=== PATIENT | male | born 1960 | race Caucasian/White ===

== ENCOUNTER 2023-05-21 06:05 | Day surgery (SDC) | payer BC, SELFPAY ==
[2023-05-21] VITALS (8 sets, daily range): BP systolic 129–166; BP diastolic 78–99; BMI 30.8
[2023-05-21] MEDS: NSS 267 ML IV (07:05)
[2023-05-21] MEDS: LOW STRENGTH ASPIRIN 324 MG PO (07:24)
--- NOTE | 2023-05-21 07:25 | ITS.CL.CATH ---
Annealing Operator - Catheterization
Cardiac Catheterization
Procedure Report:
LEFT HEART CATHETERIZATION
Date of Procedure: November 19, 2023
Procedures performed:
1: Coronary angiography
2: Left ventricular hemodynamic assessment
Primary Care Physician: Dr. Tammy Teixeira
Primary Drawing Box Tender: Myself
INDICATION: The patient is a 62-year-old man with a past medical history significant for severe mitral regurgitation with prolapse of the P2 segment and recent atrial fibrillation now on Eliquis who is referred for coronary angiography in
preparation for surgical mitral valve repair. The patient is in atrial fibrillation and Eliquis was held for the procedure.
ACCESS: The patient was prepped and draped in usual sterile fashion. A 6 Cameroonian sheath was placed in the right radial artery using the Seldinger over the wire technique.
HEMODYNAMIC FINDINGS (mmHg):
LV(s/d,EDP): 147/13, 17
Ao(s/d,m): 146/92, 113
ANGIOGRAPHIC FINDINGS:
Single-plane Left Ventriculography in [facility] Projection: Not done.
Coronary Angiography:
Dominance: Right
Left Main: Normal
Left Anterior Descending: The left anterior descending artery is a medium caliber vessel that gives rise to 1 medium caliber bifurcating diagonal branch. These vessels have mild luminal irregularities with no obstructive disease.
Left Circumflex: Left circumflex is a medium caliber vessel that gives rise to 2 major obtuse marginal branches. These vessels are widely patent with mild luminal irregularities.
Right Coronary: The right coronary artery is a medium caliber dominant vessel that gives rise to a medium caliber posterior descending artery and posterior left ventricular branch system. There is a 30 to 40% stenosis in the distal bifurcation.
The remainder the vessels have only mild luminal irregularities with normal flow.
Fluoroscopy Time (min): 2.0
Radiation Dose (mGy): 236
DAP (Gy.cm2): 17
Closure device: None. A TR band was applied for hemostasis at the right wrist.
Complications: None.
ASSESSMENT:
1: Mild nonobstructive coronary artery disease.
CONCLUSIONS and RECOMMENDATIONS:
1: Proceed with planned mitral valve surgery as scheduled. Resume Eliquis later tonight.
Lora De La Paz M.D.
Copy to: Dr. Tammy Teixeira
[2023-05-21] MEDS: NSS 1000 IV (08:29)
== END 2023-05-21 11:00 | disposition home or self-care (01) ==
LOC: CATH 06:05
PROVIDERS: ATTENDING PHYSICIAN Internal Medicine Interventional Cardiology; FAMILY PHYSICIAN Nurse Practitioner
DX: I34.0 Nonrheumatic mitral (valve) insufficiency (principal); I25.10 Atherosclerotic heart disease of native coronary artery without angina pectoris; I48.91 Unspecified atrial fibrillation; I10 Essential (primary) hypertension; E78.5 Hyperlipidemia, unspecified; Z87.891 Personal history of nicotine dependence; Z79.01 Long term (current) use of anticoagulants
CPT/HCPCS: 93458; C1894; Q9967

== ENCOUNTER 2023-06-13 04:53 | Inpatient (IN) | payer BC, SELFPAY ==
[2023-05-14 12:30] LABS: Hematocrit 44.9 % (39.0-52.0); Hemoglobin 15.7 g/dL (13.0-18.0); Mean Corpuscular Hgb 30.8 pg (27.0-31.0); Mean Platelet Volume 9.8 fL (7.4-10.4); Platelet Count 313 10^3/uL (130-400); Red Cell Dist. Width 12.5 % (11.5-14.5); White Blood Cell Count 8.2 10^3/uL (4.8-10.8)
[2023-05-14 12:31] VITALS: BMI 29.3
[2023-05-14 12:43] LABS: INR 1.11; PT 14.5 Sec (11.4-14.6)
[2023-05-14 12:44] LABS: ALT (SGPT) 28 U/L (0-50); APTT 32.3 Sec (23.4-35.0); AST (SGOT) 32 U/L (17-59); Albumin 4.3 g/dl (3.5-5.0); Alkaline Phosphatase 67 U/L (38-126); Blood Urea Nitrogen 14 mg/dl (9-20); Calcium 9.8 mg/dl (8.4-10.2); Carbon Dioxide 29 mmol/L (22-30); Chloride 93 mmol/L (98-107); Direct Bilirubin 0.4 mg/dl (0.0-0.4); Estimated Creatinine Clearance 109 ml/min; Glucose 99 mg/dl (70-99); Potassium 4.9 mmol/L (3.5-5.1); Sodium 130 mmol/L (135-145); Total Bilirubin 1.2 mg/dl (0.2-1.3); Total Protein 6.8 g/dl (6.3-8.2); eGFR > 60.00
[2023-05-14 12:46] LABS: Urine Albumin Negative (Neg - Trace); Urine Bilirubin Negative (Negative); Urine Character Clear (Clear); Urine Color Yellow; Urine Glucose Negative (Negative); Urine Ketone Negative (Negative); Urine Leukocyte Negative (Negative); Urine Nitrite Negative (Negative); Urine Occult Blood Negative (Negative); Urine Urobilinogen Negative (Neg - 1+)
--- NOTE | 2023-05-14 13:52 | CM ---
Chart reviewed. Patient is independent of ADLS, lives with his and Down Syndrome son in a 2 ST, 1 LUCÍA, 0 DME. Reviewed preoperative and postoperative instructions and restrictions, along with showering guidelines. Gave patient 2 soaps,
along with a Cardiac Surgery Book. Patient is agreeable to home visit by CT Transitional RN. Plan is for the patient to return home with CT Transitional RN.
[2023-05-15 09:09] LABS: Glycohemoglobin (HgbA1c) 5.5 % (4.0-5.6)
[2023-06-13] VITALS (8 sets, daily range): BP systolic 107–128; BP diastolic 69–84; BMI 27.0
[2023-06-13] MEDS: PROTONIX 40 MG PO (05:38)
[2023-06-13] MEDS: MAGNESIUM OXIDE 500 MG PO (05:45)
[2023-06-13] MEDS: LOPRESSOR 25 MG PO (05:45)
--- NOTE | 2023-06-13 05:57 | W.CVOR.SURPR ---
CVOR Surgeon Immed Pre Op
-
I have examined this patient prior to performance of the scheduled procedure.
The patient's condition is unchanged from the time of the dictated/written History and
Physical and the patient is able to undergo the scheduled procedure.
MV Repair + LA MAZE + JENN E
[2023-06-13] MEDS: BACTROBAN 2% OINTMENT 1 APPLIC NASAL ×2 (06:30→20:51)
[2023-06-13 07:45] LABS: ACT+ - POC 98 Seconds (82-134)
[2023-06-13 07:46] LABS: Urine Albumin Negative (Neg - Trace); Urine Bilirubin Negative (Negative); Urine Character Clear (Clear); Urine Color Yellow; Urine Glucose Negative (Negative); Urine Ketone Negative (Negative); Urine Leukocyte Negative (Negative); Urine Nitrite Negative (Negative); Urine Occult Blood Negative (Negative); Urine Urobilinogen Negative (Neg - 1+)
[2023-06-13 07:51] LABS: B.E. - POC -1.6 mmol/L; Glucose - POC 106 mg/dl (65-99); HCO3 - POC 23 mmol/L (21-29); Hematocrit - POC 38 % PCV (42-52); Hemodilution- POC No; Hemoglobin Calculated - POC 12.9; Ionized Calcium - POC 1.17 mmol/L (1.12-1.27); O2 Saturation %Calculated-POC 99.3 5 (92-96); PCO2 - POC 36 mmHg (35-45); PO2 - POC 145 mmHg (80-100); Potassium - POC 3.8 mmol/L (3.6-5.0); Sodium - POC 136 mmol/L (135-145)
[2023-06-13 08:30] LABS: ACT+ - POC 574 Seconds (82-134)
[2023-06-13 09:08] LABS: ACT+ - POC 606 Seconds (82-134)
[2023-06-13 09:20] LABS: B.E. - POC 0.3 mmol/L; Glucose - POC 183 mg/dl (65-99); HCO3 - POC 25 mmol/L (21-29); Hematocrit - POC 32 % PCV (42-52); Hemodilution- POC Yes; Hemoglobin Calculated - POC 10.8; O2 Saturation %Calculated-POC 99.9 5 (92-96); PCO2 - POC 41 mmHg (35-45); PO2 - POC 353 mmHg (80-100); Potassium - POC 5.4 mmol/L (3.6-5.0); Sodium - POC 132 mmol/L (135-145)
[2023-06-13 09:48] LABS: B.E. - POC 0.3 mmol/L; Glucose - POC 174 mg/dl (65-99); HCO3 - POC 26 mmol/L (21-29); Hematocrit - POC 33 % PCV (42-52); Hemodilution- POC Yes; Hemoglobin Calculated - POC 11.2; Ionized Calcium - POC 1.08 mmol/L (1.12-1.27); O2 Saturation %Calculated-POC 99.9 5 (92-96); PCO2 - POC 43 mmHg (35-45); PO2 - POC 316 mmHg (80-100); Potassium - POC 4.1 mmol/L (3.6-5.0); Sodium - POC 134 mmol/L (135-145); pH - POC 7.38 (7.35-7.45)
[2023-06-13 09:51] LABS: ACT+ - POC 543 Seconds (82-134)
[2023-06-13 10:31] LABS: B.E. - POC -2.4 mmol/L; Glucose - POC 92 mg/dl (65-99); HCO3 - POC 21 mmol/L (21-29); Hematocrit - POC 38 % PCV (42-52); Hemodilution- POC Yes; Ionized Calcium - POC 1.37 mmol/L (1.12-1.27); PCO2 - POC 32 mmHg (35-45); PO2 - POC 526 mmHg (80-100); Potassium - POC 3.6 mmol/L (3.6-5.0); Sodium - POC 136 mmol/L (135-145); pH - POC 7.43 (7.35-7.45)
[2023-06-13 10:34] LABS: ACT+ - POC 539 Seconds (82-134)
[2023-06-13 10:50] LABS: ACT+ - POC 101 Seconds (82-134)
[2023-06-13 10:59] LABS: B.E. - POC -4.3 mmol/L; Glucose - POC 65 mg/dl (65-99); HCO3 - POC 23 mmol/L (21-29); Hematocrit - POC 37 % PCV (42-52); Hemodilution- POC Yes; Hemoglobin Calculated - POC 12.5; Ionized Calcium - POC 1.31 mmol/L (1.12-1.27); PCO2 - POC 48 mmHg (35-45); PO2 - POC 69 mmHg (80-100); Potassium - POC 3.1 mmol/L (3.6-5.0); Sodium - POC 139 mmol/L (135-145); pH - POC 7.28 (7.35-7.45)
--- NOTE | 2023-06-13 11:30 | W.PN.CT.SURG ---
CT Surgery Operative Note
-
CARDIAC SURGERY OPERATIVE REPORT
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
Postoperative Diagnosis: Same
Procedure(s) Performed:
1. Right mini thoracotomy with right common femoral artery and vein cannulation under LINDA guidance
2. Radical mitral valve repair (30 mm annuloplasty band, neochordalplasty with 2 pairs of CV 4 Superior-Matias to P2/P3)
3. Left atrial maze using cryoablation
4. Left atrial appendage exclusion
5. Placement temporary ventricular pacing wires
6. Trans esophageal echocardiography
Date of Surgery: 06/13/23
Comorbidities:
1. Severe mitral valve insufficiency, symptomatic, secondary to type II pathology [prolapse of P2 scallop into P3 scallop]
2. Paroxysmal atrial fibrillation on anticoagulation
3. Hyperlipidemia
4. Hypertension
5. Inflammatory bowel disease
6. Degenerative joint disease
7. BPH
8. History of skin cancer
9. Chronic back pain
10. Mild left ventricular dilation /cardiomyopathy
Attending Surgeon: Samy Lora MD, MS
Assistants: Kimberly Pak PA-C (present and necessary for retraction, suctioning, exposure, suture management, wound closure, etc. under my direction)
Anesthesiology: Rodriguez Jones MD and Topher Atkins CRNA
Scrub and Circulating RNs: Farida Piedra RN, Malika Dorsey RN
Infrastructure Technician: Angeles Decker CCP
Anesthesia: GETA
EBL: per perfusion records
Products: none
CPB Time: 120 minutes
Aortic Cross Clamp Time: 86 minutes
Indication(s) for Procedures: This is a 62-year-old mitral series secondary to degenerative mitral valve disease. He also had new onset atrial fibrillation and was symptomatic in the form of shortness of breath and fatigue and requiring Lasix for
edema. He met stage D symptomatology and class I indication for mitral valve invention.
Mitral Valve Description: Myxomatous disease with thickening of both the anterior and posterior mitral valve leaflets. There was marked degeneration and prolapse of the P2 scallop into the P3 scallop. There was also asymmetrical dilation of the
annulus mostly at the P2 P3 region.
Ablation:
1. Box lesion to posterior LA wall encompassing the bilateral Pulmonary Veins
2. JENN lesion + JENN Exclusion
3. Posterior mitral annular line toward P2/P3
4. Due to difficulty with exposure, I was unable to safely visualize the coronary sinus and so I did not perform this ablation line
Implants:
1. 30mm Annuloplasty Band, DAILEY PhysioFlex, SN [id number]
2. 2 pairs of CV-4 GoreTex
Specimen:
1. None
Findings: Left ventricular ejection fraction preoperatively was approximate 55% with mildly dilated left ventricular dimensions following surgery his EF remained normal at 60 to 65% with a cardiac index of over 3 without inotropic support. The
mitral valve was repaired by placement of 2 CV 4 Superior-Matias sutures to the anterior lateral and posterior medial papillary muscle heads directed towards the P2 and P3 scallops. A total of 11 nonpledgeted 2 Ethibond sutures were placed to support the
annulus from trigone to trigone and secured with core knots. Dynamic saline pressurization of the LV and ink test demonstrated a posterior coaptation line with approximately 8 mm of coaptation height. Upon removal of the cross-clamp and coming off
of cardiopulmonary bypass, he had no residual mitral valve insufficiency, no systolic anterior motion, and a mean gradient of 3 across the valve was a index of 3. There were no new regional wall motion abnormalities. RV function was normal. He
regained sinus rhythm after short period of first-degree AV block.
Description of Procedure: The patient was brought to the operating room and placed supine in the table with their right side bumped up and right arm down. Arterial and central access was performed by anesthesiology. The patient was prepped from chin
to toes in the typical sterile fashion. Trans esophageal evaluation of cardiac function and all valvular structures was conducted. Before commencing, a time out was performed by all members of the team. All were in agreement with the procedure and
laterality and I proceeded. A small right groin incision was made to expose the common femoral artery and vein. A total of 40,000units of heparin was given. A 5-6 cm right lateral thoracotomy was performed over the 4th intercostal space verified by
visualization of the hilum. The common femoral artery and vein were cannulated under transesophageal guidance using open Seldinger technique. The arterial line was verified to have an appropriate bounce and pressure correlating with testing. Once
the ACT was above 400, retrograde autologous priming was done and we commenced cardiopulmonary bypass. Target core temperature was 34�C.
Carbon dioxide was used to flood the field. The course of the phrenic nerve was identified to prevent injury. His right hemidiaphragm was elevated and so a diaphragm stitch was placed at the central tendon and retracted anteriorly in order to roll
the diaphragm downward. The pericardium was opened and two stay sutures were placed to facilitate a ``pericardial table.�� The oblique sinus was developed followed by the inter atrial groove. An antegrade root vent was inserted and secured with a
pursestring suture. The pump flow and mean arterial pressure were lowered and an aortic cross clamp was applied to the ascending aorta. A total of 1.2L initial dose of Antegrade cardioplegia was delivered. We had rapid electro myocardial quiescence
at 400cc of cardioplegia. The ventricle was monitored for distension by echocardiogram during this time. The left atrium was incised and enlarged. A left atrial lift retractor was placed. The mitral valve was inspected. I did have to redose
cardioplegia, as likely the clamp was not occlusive, a total of 300cc of additional cardioplegia with quiescent at <100cc of cardioplegia. Left atrial cryoablation was performed with the ablation lines listed above. The mitral valve was repaired as
described above. The left atrial appendage was then sewn shut with 3-0 Prolene in a double layered fashion. The left atriotomy was closed with 3-0 prolene in a running fashion leaving a ventricular vent in place to de-air. After filling the heart,
the vent was removed and the prolene was secured with a corknot. Unipolar ventricular pacing wire was placed on the base of the right ventricle. The patient was placed into Trendelenburg position and pump flows were lowered. The clamp was slowly
removed with the root vent turned on. De-airing maneuvers were performed. We started to rewarm with a target of 36.5�C.
As the heart recovered, the mitral valve and ventricular function were assessed under transesophageal echocardiogram. The root vent was removed. Once weaning parameters were satisfactory, cardiopulmonary bypass flow was lowered until we were off
cardiopulmonary bypass the mitral valve was inspected again. All surgical sites were inspected for hemostasis and appeared appropriate. The lines were clamped and the arterial was relocated to the venous cannula to give back volume. A test dose of
protamine was delivered and patient was monitored for any adverse reactions followed by complete protamine dosing. The femoral vessels were decannulated and repaired as indicated. The pericardium was approximated with 2-0 ethibond sutures secured
with corknots. One 19F Navneet drain remained in the pleural space and one 24F navneet drain in the pericardium. There was an excellent palpable distal to the APPRENTICE TECHNICIAN cannulation site. Local analgesia was injected to the thoracotomy. The rib space was
approximated with #2 ethibond suture. The incision was closed in layers in a running fashion.
All instrument, sponge, and needle counts were confirmed to be correct x 2 at the end of the operation. The patient was transferred to the cardiac intensive care unit in critical but stable condition.
I, Dr. Samy Lora, was present, scrubbed for, and performed all critical elements of this procedure.
Samy Lora MD, MS
Cardiothoracic Surgeon
[facility]
This dictation was created using the [employer] dictation system. Please excuse any grammatical, typographical, or 'sound alike' errors
[2023-06-13 11:59] LABS: Glucose - Point of Care 103 mg/dl (70-99)
[2023-06-13 12:12] LABS: Mixed Venous O2 Saturation 74.2 %
[2023-06-13 12:19] LABS: Hematocrit 38.3 % (39.0-52.0); Hemoglobin 12.9 g/dL (13.0-18.0); Platelet Count 285 10^3/uL (130-400)
--- NOTE | 2023-06-13 12:24 | W.PN.UPDATE ---
Update Note
Progress Note Update
62 year old male electively with severe mitral regurgitation, was admitted 06/13 for mitral valve repair #30mm, neochords(2 pair); Cryo MAZE; JENN exclusion via right mini thoracotomy by Dr. Lora
IV fluids: 1000
U.O.:� 650
Blood:� none
Wires:� 2 V-wires
Inotropes:� none
Pressors:� none
Sedatives:�
�
NEURO: drowsy, pupils +3mm B/L , CAST to command
RESP: Extubated in OR, Lungs clear B/L.1 mediastinal and R pleural (35cc on arrival) chest tubes to -20cm suction. Sanguineous drainage
CV: RRR +S1, S2, no S3, no�rub, no murmur. Dermabond to right mini thoracotomy and right femoral cannulation site. RIJ w/Wilson locked @ 48cm. PA 38/23; CVP 14
ABD: round, soft, no BS
EXT: no edema, +2/4 DP pulses B/L, left radial A-line intact
: Gill with clear yellow urine
�
A/P: POD #0 s/p mitral valve repair #30mm, neochords (2 pair); Cryo MAZE; JENN exclusion via right mini thoracotomy
LINDA: EF�60%
- extubated in OR
- will need pre discharge TTE
- will need instruction regarding antibiotic prophylaxis for dental and invasive procedures
�
# acute surgical blood loss anemia-expected
- trend CBC
�
# hx Atrial fibrillation
- resume�Toprol XL Eliquis on DC per Dr Lora
- Lopressor and ASA in immediate post-op period
# HTN
- on Lisinopril/HCTZ at home. Resume as BP/creatinine permits
# Hyperlipidemia
- resume Lipitor 80mg daily
# chronic back pain/depression
- resume Cymbalta 30mg daily when tolerating oral intake
# Irritable bowel syndrome
- resume Entyvio on dc
[2023-06-13 12:26] LABS: Blood Urea Nitrogen 17 mg/dl (9-20); Estimated Creatinine Clearance 91 ml/min; Glucose 102 mg/dl (70-99); Magnesium 3.3 mg/dl (1.6-2.3)
--- NOTE | 2023-06-13 12:27 | CM ---
Chart reviewed. Patient is in the OR today. Patient is independent of ADLS, lives with his in a 2 STH, 1 LUCÍA, 0 DME. Plan is for the patient to return home with CT Transitional RN. CM to follow
[2023-06-13 12:30] LABS: INR 1.46; PT 17.6 Sec (11.4-14.6)
[2023-06-13 12:31] LABS: APTT 29.4 Sec (23.4-35.0)
--- NOTE | 2023-06-13 12:48 | CON.INTV ---
Consultation
Consultation Request
Date/Time Consultation Requested: 06/13/2023-12:30 PM
Date/Time Consultation Performed: 06/13/2023-1 PM
Requesting Provider: Dr. Lora
Performing Provider: Dr. Altman
Reason for Consultation: Postoperative ventilator/critical care management
Medical History
-
Chief Complaint: Mitral regurgitation
History of Present Illness:
62-year-old male with a history of hypertension, hyperlipidemia, inflammatory bowel disease with severe mitral valve insufficiency who underwent radical mitral valve repair and advertising solicitor consulted for postoperative ventilator/critical care
management 06/13/2023. Patient was extubated successfully, somewhat groggy, no complaints of shortness of breath, pain controlled, no chest congestion, productive cough, or abdominal pain
Past Medical History
Past Medical History: None (Hypertension. Hyperlipidemia. PAF on anticoagulation. Inflammatory bowel disease. DJD. BPH. Chronic back pain. Former smoker.)
Social History
Tobacco: Former Smoker (80-wvpf-sucr quit 30 years ago)
Alcohol: Occasional
Drug: None
Living: With Family
Occupational Exposures: No known asbestos exposure
Environmental Exposures: No known tuberculosis exposure
Family History
Family History: Other (Father-lung cancer. Mother-Alzheimer's)
Allergies / Home Medications
Allergies
Allergy/AdvReac Type Severity Reaction Status Date / Time
codeine Allergy Vomiting Verified 05/21/23 06:32
Home Medications
Medication Instructions Recorded Confirmed Last Taken Type
Entyvio Pen 1 dose SC Q8W 05/13/23 06/13/23 04/30/23 History
apixaban 5 mg tablet (Eliquis) 5 mg PO BID 05/13/23 06/13/23 06/07/23 History
atorvastatin 80 mg tablet 80 mg PO DAILY 05/13/23 06/13/23 06/12/23 History
duloxetine 30 mg capsule,delayed 30 mg PO DAILY 05/13/23 05/21/23 05/21/23 06:00 History
release 30 mg
lisinopril 20 1 tab PO DAILY 05/13/23 06/13/23 06/12/23 History
mg-hydrochlorothiazide 25 mg tablet
metoprolol succinate 50 mg 50 mg PO BID 05/13/23 06/13/23 06/12/23 History
tablet,extended release 24 hr
Review of Systems
-
Unable to Obtain full review of systems at this time due to: Other (Per HPI)
Vitals / Labs / Diagnostic Testing
Vital Signs
Temp Pulse Resp Pulse Ox
96.5 F L 90 17 97
06/13/23 12:00 06/13/23 12:30 06/13/23 12:30 06/13/23 12:30
Lab Data
06/13/23 11:59
Laboratory Results
06/13/23
11:59
PT 17.6 H
INR 1.46
APTT 29.4
Diagnostic Testing:
Physical Exam
-
Exam:
Well-nourished and well-developed in no apparent distress
HEENT-atraumatic, normocephalic
Heart-regular rate and rhythm-no murmurs, rubs or gallops
Chest-clear to auscultation, no wheezes, crackles, median sternotomy bandage is not removed
Abdomen soft nondistended
Extremities-no cyanosis, clubbing, edema and good peripheral pulses
Integument-intact, no rashes, lesions or ecchymosis
Neurologically alert and oriented moving all extremities nonfocal
Assessment
-
62-year-old male with a history of hypertension, hyperlipidemia, inflammatory bowel disease with severe mitral valve insufficiency who underwent radical mitral valve repair and advertising solicitor consulted for postoperative ventilator/critical care
management 06/13/2023.
Assessment
Severe mitral valve insufficiency secondary to type II pathology
Status post minithoracotomy, radical mitral valve repair, left atrial MAZE using cryoablation, left atrial appendage exclusion-Dr. Lora-06/13/2023
Mild anemia
Conditions present prior to admission:
Hypertension.
Hyperlipidemia.
PAF on anticoagulation.
Inflammatory bowel disease.
DJD.
BPH.
Chronic back pain.
Former smoker.
Plan
Patient tolerated extubation postoperatively
Supplemental oxygen as needed
Incentive spirometry
Aspiration precautions
Nebulizers if needed-currently not bronchospastic
Pulmonary artery catheter parameters will be followed
Pressors/antihypertensive/inotropes/diuretics will be provided as needed
Monitor chest tube output
Monitor hemoglobin
Monitor platelet count and coags
Transfuse blood product if needed
CT surgery following chest tubes
Monitor blood sugar
Insulin drip per protocol
Aspiration precautions
VAP prevention protocol
DVT prophylaxis
Early nutrition
Early mobilization
Critical care statement: A total of 46 minutes of critical care time was provided for this patient today. This includes management of ventilator, spontaneous breathing trial, arterial blood gases, pressors, of unstable vital signs, evaluation of the
patient at bedside, reviewing the patient's pertinent medical records including radiographs, microbiology, laboratory evaluations, and discussion with primary team and critical care nursing.
Diagnostic data:
Chest x-ray 06/13/2023-lungs clear
CT chest abdomen and pelvis 06/02/2023-no evidence for thoracic or abdominal aortic aneurysm or dissection, mild coronary artery calcifications
Cardiac catheterization 05/21/2023-mild nonobstructing CAD
Transesophageal echocardiogram-preop 06/13/2023-EF 60%, severe mitral regurgitation
Data Reviewed
-
EKG: Report reviewed by me
Radiology: Report reviewed by me
CT Scan: Report reviewed by me
Medical Tests (Nuc Med, Echo etc): Report reviewed by me
Labs: Labs reviewed by me
Old Records: Reviewed
Critical Care Time (in minutes): 46
--- NOTE | 2023-06-13 13:00 | PTCARENOTE ---
Assumed care of patient from CVOR team. Drowsy but answers appropriately with questions. SR on monitor. Epicardial wire to box. simple mask 8 L 99%. Chest tubes x 2 to - 20 cm suction. No air leak or crepitus noted. Gill draining clear yellow
urine.
Pulses palpated. Insulin per glycemic protocol. RT IJ cordis with swan at 47cm. LT radial A line transducing. Lines leveled, recalibrated and flushed.
[2023-06-13 13:04] LABS: Glucose - Point of Care 127 mg/dl (70-99)
[2023-06-13 13:04] LABS: B.E. -1.9 mmol/L; HCO3 24.3 mmol/L (21-28); Ionized Calcium 1.21 mMOL/L (1.15-1.33); O2 Saturation % 97.9 % (94-98); PCO2 46 mmHg (35-48); PO2 106 mmHg (83-108); Potassium 3.5 mMOL/L (3.5-5.1); pH 7.33 (7.35-7.45)
[2023-06-13] MEDS: MORPHINE SULFATE 2 MG IV ×2 (13:15→20:53)
[2023-06-13] MEDS: TYLENOL PO (13:16)
[2023-06-13] MEDS: PEPCID IV (13:17)
[2023-06-13] MEDS: NSS 500 IV (13:17)
[2023-06-13] MEDS: STERILE WATER FOR INJECTION 16 ML IV ×2 (13:19→13:20)
[2023-06-13] MEDS: ZINACEF 1500 MG IV ×2 (13:20)
[2023-06-13] MEDS: CYMBALTA DELAYED RELEASE PO (13:26)
[2023-06-13] MEDS: NSS (PRESERVATIVE FREE) IV (13:26)
[2023-06-13] MEDS: LIPITOR PO (13:26)
[2023-06-13 14:11] LABS: Glucose - Point of Care 121 mg/dl (70-99)
[2023-06-13 15:09] LABS: Glucose - Point of Care 116 mg/dl (70-99)
--- NOTE | 2023-06-13 15:15 | CON.CAR ---
Addendum entered and electronically signed by Armando Langley MD 06/13/23 17:20:
62-year-old man who underwent mitral valve repair with with neochords, maze, left atrial appendage exclusion on 06/13/2023. Awake, extubated, insulin insulin drip, states he feels fairly comfortable
PMH: Severe mitral regurgitation, PAF, hypertension, hyperlipidemia, degenerative disc disease and IBS
PSH: Left rotator cuff surgery, right arthroscopy pending, dermatologic surgery
FH: Noncontributory
SH: , remote smoker, recent reduction in alcohol,
Allergies: Codeine
ROS not performed, immediately postoperative
Vital signs reviewed and stable,
Head neck exam unremarkable, lungs are clear, regular rate rhythm no rub, abdomen benign extremities without edema, pulses palpable, neuro nonfocal
Postop EKG no acute changes, hemoglobin 13.3, INR 1.46, BUN and creatinine 17 and 0.9, chest x-ray postop satisfactory, chest x-ray satisfactory
Impression:
MV repair with neochords, maze, left atrial appendage exclusion 06/13/2023
History of severe mitral regurgitation
Paroxysmal atrial fibrillation
Hypertension
Hyperlipidemia
Back pain
IBS
Plan:
He looks well immediately postoperatively.
Appreciate efforts of CT surgery.
We will continue to follow.
Original Note:
Consultation
Consultation Request
Date/Time Consultation Requested: 06/13/2023
Date/Time Consultation Performed: 06/13/2023
Requesting Provider: Dr. Lora
Performing Provider: Dr. AUDRA Langley
Reason for Consultation: Post-Op MVR
Medical History
-
History of Present Illness:
HPI: Severo is a 62-year-old male with past medical history of severe mitral regurgitation, paroxysmal atrial fibrillation, hypertension, hyperlipidemia, chronic back pain, and IBS who presented to ER for elective mitral valve repair. He has
had known severe mitral regurgitation and underwent workup including LINDA and catheterization earlier this year. Catheterization revealed mild nonobstructive coronary disease with severe MR. This was also confirmed by LINDA. He was seen by CT
surgery as outpatient and was arranged for elective mitral valve repair which she presented for today, 06/13/2023. Seen postoperatively. He was extubated in the OR and is awake and recovering in the CVICU. He has some mild chest discomfort but
otherwise has no acute complaints.
PMH:
Severe mitral regurgitation
Paroxysmal atrial fibrillation
Chronic Eliquis anticoagulation
Hypertension
Hyperlipidemia
Chronic back pain
IBS
Past Medical History
Past Medical History: Other (In HPI)
Past Surgical History: Other (R rotator cuff repair, L rotator cuff repair)
Social History
Tobacco: Former Smoker
Alcohol: Occasional
Drug: None
Personal:
Living: With Family
Employment: Retired
Family History
Family History: Cancer and Hypertension
Allergies / Home Medications
Allergy/AdvReac Type Severity Reaction Status Date / Time
codeine Allergy Vomiting Verified 05/21/23 06:32
Medication Instructions Recorded Confirmed Type
Entyvio Pen 1 dose SC Q8W 05/13/23 06/13/23 History
apixaban 5 mg tablet (Eliquis) 5 mg PO BID 05/13/23 06/13/23 History
atorvastatin 80 mg tablet 80 mg PO DAILY 05/13/23 06/13/23 History
duloxetine 30 mg capsule,delayed 30 mg PO DAILY 05/13/23 05/21/23 History
release
lisinopril 20 1 tab PO DAILY 05/13/23 06/13/23 History
mg-hydrochlorothiazide 25 mg tablet
metoprolol succinate 50 mg 50 mg PO BID 05/13/23 06/13/23 History
tablet,extended release 24 hr
Review of Systems
-
History Source: Patient
All other systems: Negative unless noted
Physical Exam
Vital Signs
Temp Pulse Resp Pulse Ox
97.9 F 94 18 97
02/09/24 15:07 06/13/23 15:07 06/13/23 15:07 06/13/23 15:07
Lab Results
06/13/23 11:59
Physical Exam
General: Well Developed, Well Nourished and No Apparent Distress
HEENT: Normocephalic, Anicteric and Moist Mucous Membranes
Respiratory: Clear and Non Labored Respirations
Cardiac: S1/S2 and Regular Rhythm
Musculoskeletal: No Clubbing, No Cyanosis and No Edema
Skin: Warm and Dry
Neuro: AO x 3 and Nonfocal/Grossly Intact
Psych: Calm
Impression / Plan
-
PCP: EUGENIO Clark
Taper And Floater: Dr. Tim De La Paz
Impression:
Severe mitral regurgitation
s/p R mini thoracotomy, mitral valve repair (30 mm annuloplasty band, neochordalplasty with 2 pairs of CV 4 [place]-Matias to P2/P3), MAZE, JENN exclusion 06/13/2023
Paroxysmal atrial fibrillation
Chronic Eliquis anticoagulation
Hypertension
Hyperlipidemia
Chronic back pain
IBS
LINDA 06/13/2023: EF 60%, severe MR from P2/P3 prolapse, mild TR, trace AR, normal-appearing left atrial appendage
Plan:
-He is status post mitral valve repair, maze, and JENN exclusion 06/13/[address] Lora.
-Recovering in CVICU. Remains on levo @ 2. Extubated in OR.
-Complains of some mild chest discomfort, otherwise feeling well.
-Postop EKG stable. In sinus rhythm with no arrhythmias noted on telemetry.
-Hemoglobin stable at 12.9. Continue to follow.
-BP stable.
-Continue postop care
HPI: Severo is a 62-year-old male with past medical history of severe mitral regurgitation, paroxysmal atrial fibrillation, hypertension, hyperlipidemia, chronic back pain, and IBS who presented to ER for elective mitral valve repair. He has
had known severe mitral regurgitation and underwent workup including LINDA and catheterization earlier this year. Catheterization revealed mild nonobstructive coronary disease with severe MR. This was also confirmed by LINDA. He was seen by CT
surgery as outpatient and was arranged for elective mitral valve repair which she presented for today, 06/13/2023. Seen postoperatively. He was extubated in the OR and is awake and recovering in the CVICU. He has some mild chest discomfort but
otherwise has no acute complaints.
Data Reviewed
-
EKG: Tracing Personally Visualized and interpreted
Radiology: Report Reviewed by me
Labs: Labs Reviewed by me
Old Records: Reviewed
[2023-06-13] MEDS: TYLENOL 650 MG PO ×2 (15:51→20:53)
[2023-06-13] MEDS: ROXICODONE 5 MG PO (15:51)
[2023-06-13 15:57] LABS: Glucose - Point of Care 112 mg/dl (70-99)
[2023-06-13] MEDS: PACERONE PO (16:03)
[2023-06-13 16:35] LABS: Hematocrit 38.7 % (39.0-52.0); Hemoglobin 13.3 g/dL (13.0-18.0); Platelet Count 300 10^3/uL (130-400)
[2023-06-13] MEDS: STERILE WATER FOR INJECTION 8.30000000000000071 ML IV (17:08)
[2023-06-13] MEDS: ZINACEF 750 MG IV (17:08)
[2023-06-13 17:13] LABS: Glucose - Point of Care 106 mg/dl (70-99)
[2023-06-13 19:04] LABS: Glucose - Point of Care 107 mg/dl (70-99)
[2023-06-13] MEDS: KCL 50 IV (19:19)
--- NOTE | 2023-06-13 20:45 | SUR.OPER ---
Patient received resting in bed. Patient A+A+Ox3. No neurological deficits noted. No c/o headache, dizziness or lightheadedness. O2 at 4L via NC. SaO2 95%. No s/s of respiratory distress. Two chest tubes - Mediastinal and Right Pleural -
Intact and patent - 10ml red drainage - No air leak, tidaling or crepitus noted. Chest tube dressing intact. Sinus Rhythm. Heart rate 90's. Epicardial Temporary Pacemaker - VVI intact. Patient with no c/o chest pain, pressure or discomfort.
Abdomen soft, nondistended. Hypoactive to normoactive bowel sounds. No BM. No c/o nausea. No vomiting. Gill catheter - Temperature sensing - Light anh, yellow urine - Output >=30 ml/hr. Right I.J. Cordis with [place] catheter. Left
radial arterial line. PAP, CVP, A-Line with Pressure bag/Saline flush. Flush without difficulty - Zeroed and calibrated - Waveforms within normal limits. PAP 36/24 (30). CVP 15. SVR 940. C.O. 6.04 C.I. 2.93. Dressing to right lateral chest -
Intact. Several puncture sites - Surgical adhesive. Incision with surgical adhesive - Intact. Insulin gtt - Glycemic Protocol. Patient with positive, palpable pulses. No c/o back or flank pain. Assessment as documented.
[2023-06-13] MEDS: LOPRESSOR 12.5 MG PO (20:51)
[2023-06-13] MEDS: SENOKOT-S 1 TABLET PO (20:51)
[2023-06-13] MEDS: PEPCID 20 MG IV (20:52)
[2023-06-13] MEDS: NSS (PRESERVATIVE FREE) 8 ML IV (20:52)
[2023-06-13 21:03] LABS: Glucose - Point of Care 109 mg/dl (70-99)
[2023-06-13] MEDS: TORADOL 15 MG IV (21:45)
[2023-06-13] MEDS: PACERONE 200 MG PO (21:50)
[2023-06-13] MEDS: KCL 20 MEQ PO (21:50)
[2023-06-13 23:20] LABS: Glucose - Point of Care 107 mg/dl (70-99)
[2023-06-14] VITALS (17 sets, daily range): BP systolic 102–153; BP diastolic 63–95; PULSE 81; O2SAT 92; BMI 27.2
--- NOTE | 2023-06-14 00:30 | PTCARENOTE ---
Morphine sulfate 2mg IV then Toradol 15 mg IV for pain management. Patient now sleeping without difficulty. C.O. 6.40 C.I. 2.93. Cardene gtt titration to maintain SBP 90-130. C.O. 5.43 C.I. 2.64. No further changes from previous assessment.
[2023-06-14] MEDS: ROXICODONE 5 MG PO ×4 (00:35→21:00)
[2023-06-14] MEDS: TYLENOL 650 MG PO ×5 (00:35→21:00)
[2023-06-14] MEDS: FLEXERIL 5 MG PO ×3 (00:36→20:59)
[2023-06-14] MEDS: ZINACEF 750 MG IV ×2 (00:37→08:45)
[2023-06-14] MEDS: STERILE WATER FOR INJECTION 8.30000000000000071 ML IV ×2 (00:37→08:45)
[2023-06-14 00:50] LABS: Glucose - Point of Care 117 mg/dl (70-99)
[2023-06-14 03:14] LABS: Glucose - Point of Care 115 mg/dl (70-99)
[2023-06-14 03:45] LABS: Hematocrit 38.3 % (39.0-52.0); Hemoglobin 13.1 g/dL (13.0-18.0); Mean Corp Hgb Conc. 34.2 g/dL (33.0-37.0); Mean Corpuscular Hgb 30.6 pg (27.0-31.0); Mean Corpuscular Volume 89.5 fL (80.0-94.0); Mean Platelet Volume 9.8 fL (7.4-10.4); Platelet Count 302 10^3/uL (130-400); Red Blood Cell Count 4.28 10^6/uL (4.70-6.10); Red Cell Dist. Width 13.6 % (11.5-14.5); White Blood Cell Count 20.7 10^3/uL (4.8-10.8)
[2023-06-14] MEDS: MORPHINE SULFATE 2 MG IV ×2 (03:45→16:36)
[2023-06-14] MEDS: LOPRESSOR 12.5 MG PO ×2 (04:03→07:29)
[2023-06-14 04:14] LABS: Blood Urea Nitrogen 30 mg/dl (9-20); Calcium 8.6 mg/dl (8.4-10.2); Carbon Dioxide 23 mmol/L (22-30); Chloride 104 mmol/L (98-107); Estimated Creatinine Clearance 102 ml/min; Glucose 109 mg/dl (70-99); Magnesium 2.6 mg/dl (1.6-2.3); Potassium 5.5 mmol/L (3.5-5.1); Sodium 132 mmol/L (135-145); eGFR > 60.00
[2023-06-14 05:24] LABS: Glucose - Point of Care 103 mg/dl (70-99)
[2023-06-14] MEDS: CARDENE 200 IV (05:35)
--- NOTE | 2023-06-14 05:43 | W.PN.CT ---
Today's Communication / Plan
-
-pod #1
-no issues overnight
-CI 2.46, CO 5.07. Drips: Cardene 2.5, insulin
-CT output: R pleur and med 130/250 in 12/24 hrs
-K 5.5- re-check 5.3
-Na 132 (130 preop)
-gave am Lopressor early for HTN
-consider Lasix
-current meds (ASA, Lipitor, Amio, Lopressor). On Eliquis preop for paf
-deline
-d/c insulin
-d/c Gill
-encourage IS, OOB
Assessment / Plan
-
- Symptomatic severe MR - s/p Radical mitral valve repair (30 mm annuloplasty band, neochordalplasty with 2 pairs of CV 4 [place]-Matias to P2/P3); Left atrial maze using cryoablation; Left atrial appendage exclusion by Dr Lora on 06/13/23, pod #1
- Intraop LINDA: LVEF preop was approximate 55% with mildly dilated left ventricular dimensions following surgery his EF remained normal at 60 to 65%. No residual mitral valve insufficiency, no systolic anterior motion, and a mean gradient of 3 across
the valve.� There were no new regional wall motion abnormalities.� RV function was normal.�
- Severe mitral valve insufficiency, symptomatic, secondary to type II pathology [prolapse of P2 scallop into P3 scallop]
- Paroxysmal atrial fibrillation- on Eliquis preop
- Hyperlipidemia
- Hypertension
- Inflammatory bowel disease
- Degenerative joint disease
- BPH
- History of skin cancer
- Chronic back pain
- Mild left ventricular dilation /cardiomyopathy
- Acute postop blood loss anemia - no bleeding, no transfusion
- Acute postop atelectasis
- Acute postop hyperkalemia
- Acute on chronic hyponatremia
Discussed patient care with: Nursing and Care Team
Subjective
-
Date of Service: June 14, 2023
Objective Data
-
PT 17.6 Sec (11.4-14.6) H 06/13/23 11:59
INR 1.46 06/13/23 11:59
APTT 29.4 Sec (23.4-35.0) 06/13/23 11:59
Vital Signs
Vital Signs
Temp Pulse Resp BP Pulse Ox
97.7 F 68 18 107/63 95
06/14/23 03:10 06/14/23 03:10 06/14/23 03:10 06/14/23 03:10 06/14/23 03:10
CT Intake/Output/Weight
06/13/23 06/13/23 06/14/23
06:59 18:59 06:59
Intake Total 212.0 / 825.9 613.9 / 825.9
Output Total 505 / 965 460 / 965
Balance -293.0 / -139.1 153.9 / -139.1
SaO2: 95
Physical Exam
-
General: Awake and AOx3
Cardiovascular: Regular rate & rhythm, No Murmurs and Rub
Respiratory: Decreased Breath Sounds
Sternum: Stable
Incision: Clean, Dry and Dressing Intact
Extremities: No Edema
Data Reviewed
-
Lab Results: Results Reviewed
Medications: Active Meds Reviewed
Chest X-Ray: Report Reviewed and Image Reviewed
ECG: Report Reviewed and Image Reviewed
[2023-06-14 05:55] LABS: Potassium 5.3 mmol/L (3.5-5.1)
--- NOTE | 2023-06-14 06:15 | PTCARENOTE ---
Patient A+A+Ox3. No neurological deficits noted. Sinus Rhythm. O2 3L via NC. Patient continues on Insulin gtt and Cardene gtt. [place] catheter discontinued. Left radial arterial line intact. AM labs collected and sent. K 5.5 via Arterial
draw. Repeat K 5.3 via lab draw from Cordis. Patient given CHG bath and linens changed. Chest tube dressing changed. Patient assisted OOB to chair with assist x2 without difficulty. Assessment/Interventions as documented.
[2023-06-14 07:13] LABS: Glucose - Point of Care 119 mg/dl (70-99)
[2023-06-14] MEDS: LASIX 40 MG IV (07:27)
[2023-06-14] MEDS: PEPCID 20 MG IV (07:28)
[2023-06-14] MEDS: NSS (PRESERVATIVE FREE) 8 ML IV (07:28)
[2023-06-14] MEDS: PACERONE 200 MG PO ×3 (07:29→22:37)
[2023-06-14] MEDS: LIPITOR 80 MG PO (07:29)
[2023-06-14] MEDS: LOPRESSOR PO (07:30)
[2023-06-14] MEDS: LOW STRENGTH ASPIRIN 81 MG PO (07:30)
[2023-06-14] MEDS: BACTROBAN 2% OINTMENT 1 APPLIC NASAL ×2 (07:30→20:59)
[2023-06-14] MEDS: CYMBALTA DELAYED RELEASE 30 MG PO (07:30)
[2023-06-14] MEDS: SENOKOT-S 1 TABLET PO ×2 (07:30→20:59)
[2023-06-14] MEDS: LASIX IV (07:30)
--- NOTE | 2023-06-14 07:30 | PTCARENOTE ---
Assumed care of patient from casino shift manager RN. CARMENO x3 sitting up in the chair. SR on monitor. Lt radial A line transducing, leveled, recalibrated, and flushed. Epicardial Wire maintained, box off. Insulin drip infusing per glycemic protocol. 3 L
NC 96%. Using IS independently up to 1000. No cough or sputum noted. Chest tubes to - 20 cm suction, no air leak or crepitus noted. Abdomen soft and non tender, denies nausea. Gill draining clear anh urine. Surgical sites well approximated,
surgical glue intact. Pulses palpable. General trace anasarca noted.
--- NOTE | 2023-06-14 07:41 | W.PN.INTV ---
Today's Communication / Plan
Recommendations
Tolerated extubation
Wean FiO2
Increase activity
Monitor chest tube output
deline
If insulin discontinued then transfer to telemetry-call pulmonary if respiratory issues arise
Assessment
-
62-year-old male with a history of hypertension, hyperlipidemia, inflammatory bowel disease with severe mitral valve insufficiency who underwent radical mitral valve repair and group insurance special agent consulted for postoperative ventilator/critical care
management 06/13/2023.
Assessment
Severe mitral valve insufficiency secondary to type II pathology
Status post minithoracotomy, radical mitral valve repair, left atrial MAZE using cryoablation, left atrial appendage exclusion-Dr. Lora-06/13/2023
Mild anemia
Leukocytosis
Conditions present prior to admission:
Hypertension.
Hyperlipidemia.
PAF on anticoagulation.
Inflammatory bowel disease.
DJD.
BPH.
Chronic back pain.
Former smoker.
Plan
Tolerated extubation
Wean FiO2
Encourage incentive spirometry
Increase activity
Aspiration precautions
Pulmonary artery catheter and arterial line will be removed
Pressors have been weaned
Continue to monitor chest tube output
Follow hemoglobin
Continue to follow platelet count and coags
Transfuse blood product as needed
CT surgery following chest tubes as well
Follow blood sugar
Insulin supplementation continues as needed
Early nutrition
Early mobilization
DVT prophylaxis
If patient able to be weaned off insulin drip then patient will be transferred to telemetry phase-call pulmonary if respiratory issues arise
Reviewed the patient's pertinent medical records including radiographs, microbiology, laboratory evaluations, and discussion with primary team, and critical care nursing.
Diagnostic data:
Chest x-ray 06/13/2023-lungs clear
CT chest abdomen and pelvis 06/02/2023-no evidence for thoracic or abdominal aortic aneurysm or dissection, mild coronary artery calcifications
Cardiac catheterization 05/21/2023-mild nonobstructing CAD
Transesophageal echocardiogram-preop 06/13/2023-EF 60%, severe mitral regurgitation
Subjective Dataa
Subjective Data
Date of Service:
Date of Service: June 14, 2023
Chief Complaint: Police Liaison Follow Up and Vent Management Follow Up
Subjective:
Tolerated extubation, no complaints of shortness of breath, out of bed, pain from surgery controlled, chest tube output noted, no abdominal pain
Review of Systems
General: Other (Per HPI)
Objective Data
Data Reviewed
Vital Signs / I&O / Oxygen:
Vital Signs
Temp Pulse Resp BP Pulse Ox
97.6 F 86 27 135/82 95
06/14/23 04:00 06/14/23 07:29 06/14/23 06:30 06/14/23 07:29 06/14/23 06:00
Intake and Output
06/13/23 06/14/23 06/15/23
06:59 06:59 06:59
Intake Total 953.3 / 953.3
Output Total 1115 / 1115
Balance -161.7 / -161.7
SaO2 95
Nasal Cannula flow liters per 3
minute
Physical Exam
General: Respiratory Distress (n) and Comfortable
HEENT: Normocephalic, Anicteric and Moist Mucous Membranes
Cardiovascular: Regular Rhythm
Respiratory: Crackles (n), Rhonchi (n), Non-Labored Respirations, Accessory Resp Muscle Use (n) and Stridor (n)
GI: Soft, Non Distended and Non Tender
Neurology: Awake, Alert and No Motor Deficits
Skin: Warm, Good Color, Cyanosis (n) and Jaundice (n)
Labs/Micro/Reports
Lab Data
06/14/23 03:33
06/14/23 05:33
Laboratory Results
06/13/23 06/13/23 06/13/23
11:59 12:00 12:52
PT 17.6 H
INR 1.46
APTT 29.4
pH Cancelled 7.33 L
pCO2 Cancelled 46
pO2 Cancelled 106
HCO3 Cancelled 24.3
O2 Delivery Level Cancelled
[2023-06-14] MEDS: NSS IV (08:46)
[2023-06-14 08:59] LABS: Glucose - Point of Care 126 mg/dl (70-99)
--- NOTE | 2023-06-14 09:00 | PTCARENOTE ---
Cardene drip weaned off, Lt radial A line removed, manual pressure applied , hemostasis achieved. Gill cath removed at this time. Weaned to room air 92%. Resting in chair. will monitor.
[2023-06-14 10:57] LABS: Glucose - Point of Care 114 mg/dl (70-99)
[2023-06-14] MEDS: PROTONIX 40 MG PO (11:21)
[2023-06-14] MEDS: TORADOL 15 MG IV (11:21)
[2023-06-14] MEDS: TYLENOL PO (11:23)
--- NOTE | 2023-06-14 12:28 | PTCARENOTE ---
Insulin drip discontinued per md order. Pain medication administered. VSS Assessment unchanged from prior.
--- NOTE | 2023-06-14 12:48 | W.PN.ANS.POP ---
Anesthesia Post Operative
- Anesthesia Post Op Note
Vital Signs Stable-See Nursing Note: Yes
Airway Patent: Yes
Adequate Pain Control: Yes
Change in Mental Status: No
Current Postoperative Nausea & Vomiting: No
Anesthesia Complications: No
General Anesthetic Recall: No
Unplanned Admission: No
Post Op Hydration Adequate: Yes
--- NOTE | 2023-06-14 15:36 | PTCARENOTE ---
Pt with no urge to void post sandoval removal this am. Ambulated to bathroom, unable to void. Assisted back to bed. Bladder scanned for 184 ml . No tenderness or urge on palpation. Will allow more time. CT CERTIFIED HYPERBARIC TECHNICIAN notified. Assessment otherwise
unchanged. Will monitor.
[2023-06-14] MEDS: LOPRESSOR 25 MG PO (20:59)
--- NOTE | 2023-06-14 21:00 | PTCARENOTE ---
Patient received resting in bed watching television. Patient A+A+Ox3. No neurological deficits noted. No c/o headache, dizziness or lightheadedness. No s/s of respiratory distress. Room air. SaO2 92%. Two chest tubes - Mediastinal and Right
Pleural - Intact and patent - 5 ml red drainage - No air leak, tidaling or crepitus noted. Chest tube dressing intact. Sinus Tachycardia to Sinus Rhythm. Epicardial Temporary Pacemaker - VVI. Patient with no c/o chest pain, pressure or
discomfort. Normoactive bowel sounds. No BM. Positive flatus. No urge to void at this time. No c/o bladder pain, discomfort or distention. Patient with no c/o back or flank pain. Patient with puncture/surgical sites to right anterior chest
and right lateral chest - Intact - Open to air. Surgical incision to right chest region - Intact - Surgical adhesive - Open to air. Right I.J. Cordis - Intact and patent - Saline flush 10 ml/hr. Assessment as documented.
[2023-06-14 21:05] LABS: Blood Urea Nitrogen 50 mg/dl (9-20); Calcium 9.1 mg/dl (8.4-10.2); Carbon Dioxide 23 mmol/L (22-30); Chloride 95 mmol/L (98-107); Estimated Creatinine Clearance 68 ml/min; Glucose 136 mg/dl (70-99); Magnesium 2.6 mg/dl (1.6-2.3); Potassium 4.9 mmol/L (3.5-5.1); Sodium 128 mmol/L (135-145); eGFR > 60.00
[2023-06-14] MEDS: MUCINEX 600 MG PO (22:37)
[2023-06-14] MEDS: DILAUDID 0.25 MG IV (23:05)
[2023-06-14] MEDS: FLOMAX 0.400000000000000022 MG PO (23:25)
[2023-06-15] VITALS (12 sets, daily range): BP systolic 94–135; BP diastolic 59–86; BMI 27.5
--- NOTE | 2023-06-15 00:30 | PTCARENOTE ---
Patient ambulated to bathroom with assist x1. Unable to void. Patient assisted to bed. Bladder scanned for 360 ml. Flomax 0.4 mg PO ordered and given. Patient with occasional coughing - Difficulty mobilizing secretions - Mucinex 600 mg PO
ordered and given. Pain management with Tylenol 650 mg PO, Roxicodone 5mg PO and Now dose of Dilaudid 0.25 mg IV. Patient resting in bed. Assessment as documented.
[2023-06-15] MEDS: TYLENOL PO (01:00)
[2023-06-15] MEDS: NSS 500 IV (05:05)
[2023-06-15] MEDS: TYLENOL 650 MG PO ×5 (05:06→19:54)
[2023-06-15] MEDS: ROXICODONE 5 MG PO (05:06)
[2023-06-15 05:44] LABS: Hemoglobin 12.4 g/dL (13.0-18.0); Mean Corp Hgb Conc. 33.5 g/dL (33.0-37.0); Mean Corpuscular Hgb 30.5 pg (27.0-31.0); Mean Corpuscular Volume 90.9 fL (80.0-94.0); Mean Platelet Volume 10.3 fL (7.4-10.4); Platelet Count 293 10^3/uL (130-400); Red Blood Cell Count 4.07 10^6/uL (4.70-6.10); Red Cell Dist. Width 13.6 % (11.5-14.5); White Blood Cell Count 21.8 10^3/uL (4.8-10.8)
[2023-06-15 06:05] LABS: Blood Urea Nitrogen 51 mg/dl (9-20); Calcium 8.9 mg/dl (8.4-10.2); Carbon Dioxide 26 mmol/L (22-30); Chloride 97 mmol/L (98-107); Estimated Creatinine Clearance 68 ml/min; Glucose 125 mg/dl (70-99); Potassium 5.1 mmol/L (3.5-5.1); Sodium 127 mmol/L (135-145); eGFR > 60.00
--- NOTE | 2023-06-15 06:15 | PTCARENOTE ---
Patient A+A+Ox3. No neurological deficits noted. Patient ambulated to bathroom with assist x1. Unable to void. Serosanguineous drainage noted on right side of patient's gown. Chest tube dressing and V-wire dressing noted with moderate
saturation. Dressings changed. Patient given CHG bath and linens changed. PA for CT Surgery, Yadiel Brown PA-C, assessed chest tubes. Patient back to bed. Bladder scan for 531 ml. Straight cath for 550 ml anh urine. Post straight cath
bladder scan 36 ml. Patient OOB to chair. Standing scale weight 89.4 kg. Assessment/Interventions as documented.
--- NOTE | 2023-06-15 06:45 | W.PN.CT ---
Today's Communication / Plan
-
-pod #2
-straight cathed for 550 cc at 6am. Started Flomax last night
-Cr trended up - 1.2 today. Will hold Toradol and Mg
-increased Lopressor to 50 bid for tachycardia/htn (at home on Toprol 50 bid)
-started Mucinex for cough, IS 750-1000
-CT output: R pleur and med 45/265 in 12/24 hrs
-Echo pending
-encourage IS, OOB
Assessment / Plan
-
- Symptomatic severe MR - s/p Radical mitral valve repair (30 mm annuloplasty band, neochordalplasty with 2 pairs of CV 4 [place]-Matias to P2/P3); Left atrial maze using cryoablation; Left atrial appendage exclusion by Dr Lora on 06/13/23, pod #2
- Intraop LINDA: LVEF preop was approximate 55% with mildly dilated left ventricular dimensions following surgery his EF remained normal at 60 to 65%. No residual mitral valve insufficiency, no systolic anterior motion, and a mean gradient of 3 across
the valve.� There were no new regional wall motion abnormalities.� RV function was normal.�
- Severe mitral valve insufficiency, symptomatic, secondary to type II pathology [prolapse of P2 scallop into P3 scallop]
- Paroxysmal atrial fibrillation- on Eliquis preop
- Hyperlipidemia
- Hypertension
- Inflammatory bowel disease
- Degenerative joint disease
- BPH
- History of skin cancer
- Chronic back pain
- Mild left ventricular dilation /cardiomyopathy
- Acute postop blood loss anemia - no bleeding, no transfusion
- Acute postop atelectasis
- Acute postop hyperkalemia
- Acute on chronic hyponatremia
- REINA
Discussed patient care with: Nursing and Care Team
Subjective
-
Date of Service: June 15, 2023
Objective Data
-
PT 17.6 Sec (11.4-14.6) H 06/13/23 11:59
INR 1.46 06/13/23 11:59
APTT 29.4 Sec (23.4-35.0) 06/13/23 11:59
Vital Signs
Vital Signs
Temp Pulse Resp BP Pulse Ox
98.6 F 83 18 146/83 95
06/14/23 22:35 06/15/23 02:45 06/14/23 22:35 06/14/23 22:37 06/15/23 02:45
CT Intake/Output/Weight
06/14/23 06/14/23 06/15/23
06:59 18:59 06:59
Intake Total 741.3 / 953.3 1049.4 / 1609.4 560 / 1609.4
Output Total 610 / 1115 650 / 655 5 / 655
Balance 131.3 / -161.7 399.4 / 954.4 555 / 954.4
SaO2: 95
Physical Exam
-
General: Awake and AOx3
Cardiovascular: Regular rate & rhythm, No Murmurs and No Rub
Respiratory: Rales (at bases. No wheeze b/l) and Decreased Breath Sounds
Sternum: Stable
Incision: Clean and Dressing Intact
Extremities: Other (trace edema, 2+ DP b/l)
Data Reviewed
-
Lab Results: Results Reviewed
Medications: Active Meds Reviewed
Chest X-Ray: Report Reviewed and Image Reviewed
ECG: Report Reviewed and Image Reviewed
--- NOTE | 2023-06-15 08:00 | PTCARENOTE ---
Patient care assumed from nightshift RN. Patient fully alert and oriented. Complains of 4/10 lateral chest pain at surgical incision site, scheduled tylenol given for pain relief. Afebrile, temp 98.1. NSR 90-100. BP 128/86. room air, 95% O2.
Mediastinal and R pleural chest tube in place to suction, no air leak or crepitus present, minimal serosanguineous output noted. Occasional productive cough present, mucinex given. Reaching 1000cc on I.S. V-wire intact. Meals tolerated, bowel sounds
present, no BM yet. Lasix and flomax given, still due to void. RIJ cordis intact and infusing, PIV also in place. Ambulates with assistance x1, well tolerated OOB.
[2023-06-15] MEDS: LOPRESSOR 50 MG PO ×2 (08:08→19:54)
[2023-06-15] MEDS: PACERONE 200 MG PO ×3 (08:08→22:20)
[2023-06-15] MEDS: LOW STRENGTH ASPIRIN 81 MG PO (08:09)
[2023-06-15] MEDS: SENOKOT-S 1 TABLET PO ×2 (08:09→19:54)
[2023-06-15] MEDS: MUCINEX 600 MG PO ×2 (08:09→19:54)
[2023-06-15] MEDS: PROTONIX 40 MG PO (08:09)
[2023-06-15] MEDS: LIPITOR 80 MG PO (08:09)
[2023-06-15] MEDS: FLOMAX 0.400000000000000022 MG PO (08:09)
[2023-06-15] MEDS: CYMBALTA DELAYED RELEASE 30 MG PO (08:10)
[2023-06-15] MEDS: LASIX 40 MG IV (08:10)
[2023-06-15] MEDS: BACTROBAN 2% OINTMENT 1 APPLIC NASAL ×2 (08:27→19:57)
[2023-06-15] MEDS: LOPRESSOR 5 MG IV (09:01)
[2023-06-15] MEDS: MAGNESIUM SULFATE 100 IV (09:01)
[2023-06-15] MEDS: CORDARONE 103 MG IV ×2 (10:31→15:34)
--- NOTE | 2023-06-15 13:41 | PTCARENOTE ---
Patient went back into A-fib with controlled rate. IV Lopressor and IV mag given. Amio bolus also given. Remains in A-fib, current rate 77 bpm. Patient voided 350cc anh urine. Reaching 1250cc volumes on I.S. Chest tubes x2 removed. Patient
tolerating meals. Ambulating without complication with assist x1.
--- NOTE | 2023-06-15 16:07 | PTCARENOTE ---
Patient received second dose of amiodarone bolus. Vital signs remain stable, afebrile. Assessment unchanged. Ambulating often. Tolerating meals. Closely monitoring.
--- NOTE | 2023-06-15 23:43 | SUR.PHASEI ---
Assumed care of patient at 1900. Patient found OOB in chair at time of assessment. Patient is AOx4, follows commands appropriately, moves all extremities. Lung sounds have some fine crackles in the bases, patient is on RA saO2 94%. Heart sounds are
irregular, patient is noted to be in atrial fibrillation with controlled rate, patient has v wires but PM is off. Patient has palpable pulses and trace generalized anasarca is noted. Patient has active BS and is continent of bowel and bladder. Does
report some urinary retention during the day able to void at 1920. Patient has a small R chest incision that is approximated with surgical adhesive and ENERGY PROFESSIONAL. There is and ABD dressing over CT wounds that is CDI. Patient has a R IJ cordis receiving
KVO and a L hand 20G PIV available for intermittent infusion. VSS. Patient has no complaints at this time.
[2023-06-16] VITALS (23 sets, daily range): BP systolic 92–138; BP diastolic 58–116; PULSE 88; O2SAT 96–98; BMI 27.6
[2023-06-16] MEDS: TYLENOL PO
--- NOTE | 2023-06-16 00:08 | PTCARENOTE ---
Patient reassessed. Patient remains in afib on the monitor some bradycardia noted in the high 50s. All other VSS. Assisted patient back to bed. Patient is stable.
[2023-06-16] MEDS: CORDARONE 103 MG IV ×3 (03:25→21:45)
[2023-06-16] MEDS: TYLENOL 650 MG PO ×2 (03:42→07:42)
[2023-06-16 03:46] LABS: Hematocrit 31.2 % (39.0-52.0); Hemoglobin 10.6 g/dL (13.0-18.0); Mean Corpuscular Hgb 30.4 pg (27.0-31.0); Mean Corpuscular Volume 89.4 fL (80.0-94.0); Mean Platelet Volume 10.2 fL (7.4-10.4); Platelet Count 207 10^3/uL (130-400); Red Blood Cell Count 3.49 10^6/uL (4.70-6.10); Red Cell Dist. Width 13.4 % (11.5-14.5); White Blood Cell Count 14.6 10^3/uL (4.8-10.8)
--- NOTE | 2023-06-16 04:03 | PTCARENOTE ---
Patient reassessed. Patient remains in afib HR spiking to 120 several times between [id number]. HR quickly returned to 80s-90s. CT PA notified who ordered amio bolus. Administered promptly and HR noted in the 70s following administration. AM labs
obtained. Patient is stable.
[2023-06-16 04:11] LABS: Blood Urea Nitrogen 48 mg/dl (9-20); Calcium 8.1 mg/dl (8.4-10.2); Carbon Dioxide 25 mmol/L (22-30); Chloride 99 mmol/L (98-107); Estimated Creatinine Clearance 102 ml/min; Glucose 102 mg/dl (70-99); Potassium 4.6 mmol/L (3.5-5.1); Sodium 127 mmol/L (135-145); eGFR > 60.00
--- NOTE | 2023-06-16 05:43 | W.PN.CT ---
Today's Communication / Plan
-
pod #3
-straight cathed x1 2. now on Flomax
-Cr improved 0.8
-+RC A fib, Lopressor 50 bid (at home on Toprol 50 bid)
-started Mucinex for cough, IS 750-1000
-CTs d/c'd 06/15
-encourage IS, OOB
-dispo planning
Assessment / Plan
-
- Symptomatic severe MR - s/p Radical mitral valve repair (30 mm annuloplasty band, neochordalplasty with 2 pairs of CV 4 [place]-Matias to P2/P3); Left atrial maze using cryoablation; Left atrial appendage exclusion by Dr Lora on 06/13/23, pod #3
- Intraop LINDA: LVEF preop was approximate 55% with mildly dilated left ventricular dimensions following surgery his EF remained normal at 60 to 65%. No residual mitral valve insufficiency, no systolic anterior motion, and a mean gradient of 3 across
the valve.� There were no new regional wall motion abnormalities.� RV function was normal.�
- Severe mitral valve insufficiency, symptomatic, secondary to type II pathology [prolapse of P2 scallop into P3 scallop]
- Paroxysmal atrial fibrillation- on Eliquis preop
- Hyperlipidemia
- Hypertension
- Inflammatory bowel disease
- Degenerative joint disease
- BPH
- History of skin cancer
- Chronic back pain
- Mild left ventricular dilation /cardiomyopathy
- Acute postop blood loss anemia - no bleeding, no transfusion
- Acute postop atelectasis
- Acute postop hyperkalemia
- Acute on chronic hyponatremia
- REINA
Discussed patient care with: Care Team
Subjective
Procedure
s/p Radical mitral valve repair (30 mm annuloplasty band, neochordalplasty with 2 pairs of CV 4 [place]-Matias to P2/P3); Left atrial maze using cryoablation; Left atrial appendage exclusion by Dr Lora on 06/13/23
-
Date of Service: June 16, 2023
Objective Data
-
Lab Results
06/15/23 05:14
06/15/23 05:14
PT 17.6 Sec (11.4-14.6) H 06/13/23 11:59
INR 1.46 06/13/23 11:59
APTT 29.4 Sec (23.4-35.0) 06/13/23 11:59
Vital Signs
Vital Signs
Temp Pulse Resp BP Pulse Ox
98.4 F 82 18 122/60 94
06/15/23 19:00 06/15/23 20:15 06/15/23 19:00 06/15/23 19:56 06/15/23 20:20
CT Intake/Output/Weight
06/15/23 06/15/23 06/16/23
06:59 18:59 06:59
Intake Total 1090 / 2149.4 980 / 1090 110 / 1090
Output Total 595 / 1245 350 / 550 200 / 550
Balance 495 / 904.4 630 / 540 -90 / 540
SaO2: 94
Physical Exam
-
General: Awake, Oriented and AOx3
Cardiovascular: Irregular rate & rhythm
Respiratory: Clear and Equal
Sternum: Stable
Incision: Clean, Dry and Intact
Extremities: Edema +1
Data Reviewed
-
Lab Results: Results Reviewed
Medications: Active Meds Reviewed
Chest X-Ray: Image Reviewed
Vital Signs / Labs
-
Vital Signs and Labs:
Temp Pulse Resp BP Pulse Ox
98.2 F 71 18 117/66 95
06/16/23 03:00 06/16/23 04:30 06/16/23 03:00 06/16/23 03:22 06/16/23 03:00
06/16/23 03:23
06/16/23 03:23
06/15/23 06/16/23
05:14 03:23
WBC 21.8 H 14.6 H
RBC 4.07 L 3.49 L
Hgb 12.4 L 10.6 L
Hct 37.0 L 31.2 L
Sodium 127 L 127 L
Chloride 97 L
BUN 51 H 48 H
Glucose 125 H 102 H
Calcium 8.1 L
--- NOTE | 2023-06-16 07:00 | PTCARENOTE ---
Bedside walking rounds report received: patient seen on rounds resting in bed on room air: a fibb on monitor and having bursts of uncontrolled afibb with rates to the 120's. Asymptomatic. ANN Mcnair ct surgery aware of same: patient is NPO for
cardioversion and LINDA this am. Eliquis 5mg resumed. All meds given with a sip of h20 and lasix IV given as ordered: diuresing: no difficulty voiding. Temp epicardial v wire to [employer] box, but currently off. Denies pain: just with coughing up
moderate amounts of thick white mucous. See flow record for remaining assessments.
[2023-06-16] MEDS: LIPITOR 80 MG PO (07:42)
[2023-06-16] MEDS: PROTONIX 40 MG PO (07:42)
[2023-06-16] MEDS: SENOKOT-S 1 TABLET PO ×2 (07:42→19:48)
[2023-06-16] MEDS: LOPRESSOR 50 MG PO (07:42)
[2023-06-16] MEDS: CYMBALTA DELAYED RELEASE 30 MG PO (07:43)
[2023-06-16] MEDS: PACERONE 200 MG PO ×3 (07:43→22:25)
[2023-06-16] MEDS: MUCINEX 600 MG PO ×2 (07:43→19:48)
[2023-06-16] MEDS: LOW STRENGTH ASPIRIN 81 MG PO (07:43)
[2023-06-16] MEDS: FLOMAX 0.400000000000000022 MG PO (07:43)
[2023-06-16] MEDS: BACTROBAN 2% OINTMENT 1 APPLIC NASAL ×2 (07:44→19:48)
[2023-06-16] MEDS: ELIQUIS 5 MG PO ×2 (07:53→19:48)
[2023-06-16] MEDS: LASIX 40 MG IV (08:33)
--- NOTE | 2023-06-16 09:21 | CM ---
Reviewed chart. Met with Mr. Covarrubias to review discharge plans. He states he is feeling well and maybe able to go home soon. He states prior to admission he resides with his spouse in a two story home with one step to enter. He states he has a
bedroom/full bathroom on the each level. He states prior to admission he was independent with ambulation and adls. He states he has been ambulating to the bathroom here. He states he has a prescription plan and uses [facility]. He states his
spouse will be home to assist in his care. We reviewed a home visit by the Cardiothoracic Transitional Care Nurse. He is agreeable to a home visit. Medical work-up in progress. The discharge plan is to return home with his spouse and a home visit
by the Cardiothoracic Transitional Care Nurse when medically stable.
--- NOTE | 2023-06-16 09:30 | PTCARENOTE ---
Report given to Kirstin cath/ep labeling specialist. Patient to cardiac cath technician for LINDA cardioversion.
--- NOTE | 2023-06-16 10:29 | W.PN.CARDCBS ---
Today's Communication / Plan
-
LINDA/cardioversion today
Impression / Plan
-
PCP: EUGENIO Clark
Kiln Door Repairer: Dr. Tim De La Paz
Impression:
Severe mitral regurgitation
s/p R mini thoracotomy, mitral valve repair (30 mm annuloplasty band, neochordalplasty with 2 pairs of CV 4 [place]-Matias to P2/P3), MAZE, JENN exclusion 06/13/2023
Paroxysmal atrial fibrillation�in atrial fibrillation since 210 AM
Chronic Eliquis anticoagulation
Hypertension
Hyperlipidemia
Chronic back pain
IBS
LINDA 06/13/2023: EF 60%, severe MR from P2/P3 prolapse, mild TR, trace AR, normal-appearing left atrial appendage
Plan:
He has remained in atrial fibrillation since [address] surgery
Plan is for LINDA/cardioversion today
Explained in detail to patient and he agrees
He otherwise has continued to do well status post mitral valve repair
Check echo
HPI: Severo is a 62-year-old male with past medical history of severe mitral regurgitation, paroxysmal atrial fibrillation, hypertension, hyperlipidemia, chronic back pain, and IBS who presented to ER for elective mitral valve repair. He has
had known severe mitral regurgitation and underwent workup including LINDA and catheterization earlier this year. Catheterization revealed mild nonobstructive coronary disease with severe MR. This was also confirmed by LINDA. He was seen by CT
surgery as outpatient and was arranged for elective mitral valve repair which she presented for today, 06/13/2023. Seen postoperatively. He was extubated in the OR and is awake and recovering in the CVICU. He has some mild chest discomfort but
otherwise has no acute complaints.
Progress Note - Kiln Door Repairer
Subjective
Date of Service: June 16, 2023
No complaints. Remains in atrial fibrillation
Objective
Labs:
06/16/23 03:23
06/16/23 03:23
Labs
Hgb 10.6 g/dL (13.0-18.0) L 06/16/23 03:23
Hct 31.2 % (39.0-52.0) L 06/16/23 03:23
Plt Count 207 10^3/uL (130-400) D 06/16/23 03:23
PT 17.6 Sec (11.4-14.6) H 06/13/23 11:59
INR 1.46 06/13/23 11:59
APTT 29.4 Sec (23.4-35.0) 06/13/23 11:59
Sodium 127 mmol/L (135-145) L 06/16/23 03:23
Potassium 4.6 mmol/L (3.5-5.1) 06/16/23 03:23
BUN 48 mg/dl (9-20) H 06/16/23 03:23
Creatinine 0.8 mg/dL (0.7-1.3) 06/16/23 03:23
Glucose 102 mg/dl (70-99) H 06/16/23 03:23
Vital Signs and I&O:
Vital Signs
Temp Pulse Resp BP Pulse Ox
98.4 F 80 20 109/75 95
06/16/23 07:35 06/16/23 09:15 06/16/23 07:35 06/16/23 07:35 06/16/23 07:45
Vital Signs
Temp Pulse Resp BP Pulse Ox
98.4 F 80 20 109/75 95
06/16/23 07:35 06/16/23 09:15 06/16/23 07:35 06/16/23 07:35 06/16/23 07:45
Intake & Output
06/14/23 06/15/23 06/16/23 06/17/23
06:59 06:59 06:59 06:59
Intake Total 953.3 / 953.3 2139.4 / 2149.4 1270 / 1270 565 / 565
Output Total 1115 / 1115 1245 / 1245 1000 / 1000 900 / 900
Balance -161.7 / -161.7 894.4 / 904.4 270 / 270 -335 / -335
Physical Exam
Physical Exam
General: Well developed, well nourished in NAD.
Neck: Supple, no JVD, HJR, carotids +2 B/L, no bruits bilaterally.
Heart: Non displaced PMI, RRR, no murmurs, No S3, S4, no rubs.
Lungs: Scattered rhonchi
Sternal dressings noted
Abdomen: Normal bowel sounds, soft, non-tender, non-distended.
Extremities: No clubbing, cyanosis or edema bilaterally.
Neuro: Grossly nonfocal, awake, alert and oriented x3.
--- NOTE | 2023-06-16 10:37 | W.PN.UPDATE ---
Addendum entered and electronically signed by Eric Mckenna MD 06/16/23 11:33:
tried to contact but unable to reach and no opportunity for voicmail
Addendum entered and electronically signed by Eric Mckenna MD 06/16/23 11:31:
LINDA - normal LVF, MV reapir with no MR, LA appendage occluded ( surgical). No LA thombus
CV - x2 with conversion to sinus for about 3 beats and then patient went back to afib.
Information communicated to Dr Lora and Dr Escobar. Additional rhythm management as directed by Dr Lora and Dr Escobar.
Original Note:
Update Note
Progress Note Update
Patient seen and examined. Reviewed case with Dr. Escobar. LINDA cardioversion requested. Patient with history of PAF. s/p R mini thoracotomy, mitral valve repair (30 mm annuloplasty band, neochordalplasty with 2 pairs of CV 4 [place]-Matias to P2/P3),
MAZE, JENN exclusion 06/13/2023. Postoperative atrial fibrillation over the weekend which is still persisted. Patient restarted on Eliquis. Plan for LINDA cardioversion. Procedure and risks were reviewed with the patient. Consent signed.
[2023-06-16 14:05] LABS: Blood Urea Nitrogen 34 mg/dl (9-20); Carbon Dioxide 25 mmol/L (22-30); Chloride 100 mmol/L (98-107); Estimated Creatinine Clearance 102 ml/min; Glucose 133 mg/dl (70-99); Magnesium 2.3 mg/dl (1.6-2.3); Potassium 3.6 mmol/L (3.5-5.1); Sodium 130 mmol/L (135-145); eGFR > 60.00
[2023-06-16] MEDS: KLOR-CON 40 MEQ PO (15:05)
[2023-06-16] MEDS: NSS IV (15:50)
--- NOTE | 2023-06-16 20:00 | PTCARENOTE ---
Received pt from [facility]; pt resting comfortably in chair, denies pain, and is AAOx3; Afib on monitor, VSS; Heart sounds audible, radial and DP pulses palpable, trace generalized edema, temp epicardial V-wires insulated; lung sounds diminished in
b/l bases, spo2 97% on RA; hypoactive BS x4 quadrants, abdomen, soft non tender; pt voiding clear yellow urine; surgical dressings CDI, surgical sites stable, no drainage noted; left hand PIV and right IJ cordis maintained; calcium chloride gtt
ordered and infusing; 62.5mg of Lopressor held per order; CHG wipes provided, tele leads changed, new gown provided; pt assisted into bed; call lakhani within reach; will continue to monitor
[2023-06-16] MEDS: CALCIUM CHLORIDE 10% SYRINGE 60 MG IV (20:05)
[2023-06-16] MEDS: LOPRESSOR 5 MG IV (21:35)
[2023-06-16] MEDS: CORDARONE 518 MG IV (22:00)
[2023-06-16] MEDS: KCL 20 MEQ PO (22:24)
[2023-06-16] MEDS: XOPENEX 1.25 MG INHALANT SOLUTION INH (22:48)
[2023-06-16] MEDS: ROXICODONE 5 MG PO (23:52)
[2023-06-17] VITALS (13 sets, daily range): BP systolic 108–136; BP diastolic 67–91; PULSE 76; O2SAT 94; BMI 27.7
--- NOTE | 2023-06-17 | PTCARENOTE ---
Pt assessment unchanged; VSS; Afib on monitor; pt resting comfortably in bed; 5mg IV Lopressor ordered and given followed by amiodarone bolus and gtt; k was repleted with 20meq K; 5 mg Tonja also given; see MAR for medication details; call lakhani
within reach; will continue to monitor.
--- NOTE | 2023-06-17 04:00 | PTCARENOTE ---
Pt assessment unchanged; pt resting comfortably in bed; VSS, Afib on monitor; amiodarone gtt infusing; labs drawn and sent; call lakhani within reach; will continue to monitor.
[2023-06-17 04:02] LABS: Hematocrit 29.7 % (39.0-52.0); Hemoglobin 10.3 g/dL (13.0-18.0); Mean Corp Hgb Conc. 34.7 g/dL (33.0-37.0); Mean Corpuscular Hgb 30.2 pg (27.0-31.0); Mean Corpuscular Volume 87.1 fL (80.0-94.0); Mean Platelet Volume 9.7 fL (7.4-10.4); Platelet Count 237 10^3/uL (130-400); Red Blood Cell Count 3.41 10^6/uL (4.70-6.10); Red Cell Dist. Width 13.9 % (11.5-14.5); White Blood Cell Count 14.4 10^3/uL (4.8-10.8)
--- NOTE | 2023-06-17 04:21 | W.PN.CT ---
Today's Communication / Plan
-
Plan;
-No major issues overnight. Hemodynamically and neurologically stable
-PAF on POD#2 S/P unsuccessful LINDA/CV x 2 yesterday 06/16. Resumed Eliquis 06/16
-HR in 140's last night, given IV lopressor, Amiodarone bolus and started on drip via cordis. HR better 77-110
-Will require PO rate control medication adjustment if unable to convert before d/c home
-Cardiology to comment
-Will d/c cordis after amiodarone gtt
-Cont. current meds (ASA, Eliquis, Lasix, will transition to PO BB, Amiodarone)
-Pre and postop hyponatremia improving, 129. Cont. gentle diuresis/fluid restriction
-F/U 2-view cxr
-Encourage use of IS
-OOB into chair/Ambulate
-Home later today vs tomorrow
-Will need temporary v-wires cut before d/c home
Assessment / Plan
-
- Symptomatic severe MR - s/p Right mini thoracotomy with right common femoral artery and vein cannulation under LINDA guidance/Radical mitral valve repair (30 mm annuloplasty band, neochordalplasty with 2 pairs of CV 4 [place]-Matias to P2/P3); Left atrial
maze using cryoablation; Left atrial appendage exclusion by Dr Lora on 06/13/23, pod #4
- Intraop LINDA: LVEF preop was approximate 55% with mildly dilated left ventricular dimensions following surgery his EF remained normal at 60 to 65%. No residual mitral valve insufficiency, no systolic anterior motion, and a mean gradient of 3 across
the valve.� There were no new regional wall motion abnormalities.� RV function was normal.�
- Severe mitral valve insufficiency, symptomatic, secondary to type II pathology [prolapse of P2 scallop into P3 scallop]
- Paroxysmal atrial fibrillation- on Eliquis preop
- Hyperlipidemia
- Hypertension
- Inflammatory bowel disease
- Degenerative joint disease
- BPH
- Hyponatremia
- History of skin cancer
- Chronic back pain
- Mild left ventricular dilation /cardiomyopathy
- Acute postop blood loss anemia - no bleeding, no transfusion
- Acute postop atelectasis
- Acute postop hyperkalemia
- Acute on chronic hyponatremia
- REINA
- Acute postop urinary retention, started on Flomax
- Acute postop hypovolemia with subsequent hypervolemia
- Acute postop a-fib with RVR S/P unsuccessful LINDA/CV x 2 on 06/16/23
Discussed patient care with: Cardiology, Nursing, Respiratory Therapy, Pharmacy and Care Team
Subjective
Procedure
s/p Right mini thoracotomy with right common femoral artery and vein cannulation under LINDA guidance/Radical mitral valve repair (30 mm annuloplasty band, neochordalplasty with 2 pairs of CV 4 [place]-Matias to P2/P3); Left atrial maze using cryoablation;
Left atrial appendage exclusion by Dr Lora on 06/13/23
-
Date of Service: June 17, 2023
Pt c/o cough and mild incisional pain. Cough better this AM, ambulating halls without difficulty
Objective Data
-
PT 17.6 Sec (11.4-14.6) H 06/13/23 11:59
INR 1.46 06/13/23 11:59
APTT 29.4 Sec (23.4-35.0) 06/13/23 11:59
Vital Signs
Vital Signs
Temp Pulse Resp BP Pulse Ox
98.7 F 91 16 118/78 93
06/17/23 04:00 06/17/23 04:00 06/16/23 22:51 06/17/23 04:00 06/17/23 04:00
CT Intake/Output/Weight
06/16/23 06/16/23 06/17/23
06:59 18:59 06:59
Intake Total 290 / 1270 1105 / 1585 480 / 1585
Output Total 650 / 1000 1830 / 0 250 / 2080
Balance -360 / 270 -725 / -495 230 / -495
SaO2: 93 (RA)
Physical Exam
-
General: Awake, Oriented and AOx3
Cardiovascular: No Murmurs and No Gallop
Respiratory: Decreased Breath Sounds (at bases with expiratory wheezing)
Sternum: Stable
Incision: Clean, Dry, Intact and Dressing Intact
Extremities: No Edema (trace edema)
Data Reviewed
-
Lab Results: Results Reviewed
Medications: Active Meds Reviewed
Chest X-Ray: Report Reviewed and Image Reviewed
ECG: Report Reviewed and Image Reviewed
[2023-06-17 04:26] LABS: Blood Urea Nitrogen 31 mg/dl (9-20); Calcium 8.4 mg/dl (8.4-10.2); Carbon Dioxide 25 mmol/L (22-30); Chloride 98 mmol/L (98-107); Estimated Creatinine Clearance 117 ml/min; Glucose 104 mg/dl (70-99); Potassium 4.4 mmol/L (3.5-5.1); Sodium 129 mmol/L (135-145); eGFR > 60.00
--- NOTE | 2023-06-17 07:00 | PTCARENOTE ---
Bedside walking rounds report received. Patient seen on rounds resting in chair on room air. Remains in afibb/uncontrolled at times with rates to the 130's. Otherwise, BP stable. Denies pain. Epicardial v wire secured and insulated. [employer] pacing
box accessible in room. Amio gtt infusing per protocol via right IJ cordis catheter.
[2023-06-17] MEDS: LASIX 40 MG IV (07:40)
[2023-06-17] MEDS: BACTROBAN 2% OINTMENT 1 APPLIC NASAL (07:42)
[2023-06-17] MEDS: LOW STRENGTH ASPIRIN 81 MG PO (07:43)
[2023-06-17] MEDS: MUCINEX 600 MG PO (07:45)
[2023-06-17] MEDS: PROTONIX 40 MG PO (07:45)
[2023-06-17] MEDS: SENOKOT-S 1 TABLET PO (07:45)
[2023-06-17] MEDS: CYMBALTA DELAYED RELEASE 30 MG PO (07:45)
[2023-06-17] MEDS: LIPITOR 80 MG PO (07:46)
[2023-06-17] MEDS: PACERONE 200 MG PO (07:46)
[2023-06-17] MEDS: FLOMAX 0.400000000000000022 MG PO (07:46)
[2023-06-17] MEDS: LOPRESSOR 37.5 MG PO (07:46)
[2023-06-17] MEDS: KCL 20 MEQ PO (07:47)
[2023-06-17] MEDS: ELIQUIS 5 MG PO (07:47)
[2023-06-17] MEDS: LOPRESSOR 25 MG PO (09:10)
--- NOTE | 2023-06-17 09:24 | W.PN.CARDCBS ---
Addendum entered and electronically signed by Nathanael Escobar MD 06/17/23 11:21:
I saw and examined the patient.
The SHIPPING ROOM SUPERVISOR or PA's note was reviewed and I agree with the note.
Comment: General: Well developed, well nourished in NAD.
Neck: Supple, no JVD, HJR, carotids +2 B/L, no bruits bilaterally.
Heart: Non displaced PMI, irregular, no murmurs, No S3, S4, no rubs.
Lungs: Scattered rhonchi
Sternal dressings noted
Extremities: No clubbing, cyanosis or edema bilaterally.
Neuro: Grossly nonfocal, awake, alert and oriented x3.
Remains in atrial fibrillation status post unsuccessful cardioversion on 06/16/2022. Can consider cardioversion when seen as an outpatient. Discussed with CT surgery. Stable cardiology status for discharge.
Original Note:
Today's Communication / Plan
-
Failed CV 24/04/24
Rate control with Amiodarone and Metoprolol
Continue Eliquis
T/c outpt CV in 2-3 weeks
Outpt cardiology follow up arranged
Impression / Plan
-
PCP: EUGENIO Clark
Outside Sales Executive: Dr. Tim De La Paz
Impression:
Severe mitral regurgitation
s/p R mini thoracotomy, mitral valve repair (30 mm annuloplasty band, neochordalplasty with 2 pairs of CV 4 [place]-Matias to P2/P3), MAZE, JENN exclusion 06/13/2023
Paroxysmal atrial fibrillation�in atrial fibrillation since 2/10 AM
Chronic Eliquis anticoagulation
Hypertension
Hyperlipidemia
Chronic back pain
IBS
LINDA 06/16/2023: EF 55-60%, s/p MV repair without regurgitation, LA appendage occluded ( surgical). no JENN thrombus
LINDA 06/13/2023: EF 60%, severe MR from P2/P3 prolapse, mild TR, trace AR, normal-appearing left atrial appendage
Plan:
-s/p MV repair with neochords, maze, left atrial appendage exclusion 06/13/2023
-Went into atrial fibrillation 2/10 AM, attempted CV x 2 on 06/16/23 and only maintained SR for a few beats.
-Plan is for rate control with IV Amio gtt and oral load and beta-marquita
-Check ECG to monitor QTc w/ Amiodarone
-Continue Eliquis 5 mg BID, resumed 06/16/23
-Chronic hyponatremia, Sodium stable, 129. Cont. gentle diuresis/fluid restriction
-Hgb stable 10.3, did not require transfusion
-Chest tubes out.
-Blood pressure stable with Lopressor
HPI: Severo is a 62-year-old male with past medical history of severe mitral regurgitation, paroxysmal atrial fibrillation, hypertension, hyperlipidemia, chronic back pain, and IBS who presented to ER for elective mitral valve repair. He has
had known severe mitral regurgitation and underwent workup including LINDA and catheterization earlier this year. Catheterization revealed mild nonobstructive coronary disease with severe MR. This was also confirmed by LINDA. He was seen by CT
surgery as outpatient and was arranged for elective mitral valve repair which she presented for today, 06/13/2023. Seen postoperatively. He was extubated in the OR and is awake and recovering in the CVICU. He has some mild chest discomfort but
otherwise has no acute complaints.
Progress Note - Outside Sales Executive
Subjective
Date of Service: June 17, 2023
Patient seen and examined. Feeling well. He was able to ambulate around the unit and walk up steps today. Improving incisional pain from rt thoracotomy.
Objective
Labs:
06/17/23 03:39
06/17/23 03:39
Labs
Hgb 10.3 g/dL (13.0-18.0) L 06/17/23 03:39
Hct 29.7 % (39.0-52.0) L 06/17/23 03:39
Plt Count 237 10^3/uL (130-400) 06/17/23 03:39
PT 17.6 Sec (11.4-14.6) H 06/13/23 11:59
INR 1.46 06/13/23 11:59
APTT 29.4 Sec (23.4-35.0) 06/13/23 11:59
Sodium 129 mmol/L (135-145) L 06/17/23 03:39
Potassium 4.4 mmol/L (3.5-5.1) 06/17/23 03:39
BUN 31 mg/dl (9-20) H 06/17/23 03:39
Creatinine 0.7 mg/dL (0.7-1.3) 06/17/23 03:39
Glucose 104 mg/dl (70-99) H 06/17/23 03:39
Vital Signs and I&O:
Vital Signs
Temp Pulse Resp BP Pulse Ox
98.4 F 78 18 136/89 97
06/17/23 07:38 06/17/23 09:00 06/17/23 07:26 06/17/23 08:00 06/17/23 07:45
Vital Signs
Temp Pulse Resp BP Pulse Ox
98.4 F 78 18 136/89 97
06/17/23 07:38 06/17/23 09:00 06/17/23 07:26 06/17/23 08:00 06/17/23 07:45
Intake & Output
06/15/23 06/16/23 06/17/23 06/18/23
06:59 06:59 06:59 06:59
Intake Total 2139.4 / 2149.4 1270 / 1270 1585 / 1585 430.0 / 430.0
Output Total 1245 / 1245 1000 / 1000 2230 / 2230 1300 / 1300
Balance 894.4 / 904.4 270 / 270 -645 / -645 -870.0 / -870.0
Physical Exam
Physical Exam
GEN: No distress, awake, Ox3, sitting up in chair
HEENT: supple, anicteric, mmm
LUNGS: few scattered crackles at left base otherwise CTA, no wheezes/rales
CV: Reg, S1/S2, no murmur, rub or gallop
Chest: right thoracotomy incision well approximated, C/D/I
ABD: soft, BS+, NT/ND
EXT: No edema, clubbing, cyanosis
NEURO: Gross non-focal
SKIN: No rash, warm, dry, pink
--- NOTE | 2023-06-17 10:53 | W.DCSUMMARY ---
Discharge Summary
Discharge Data
Date of Admission: 06/13/23
Date of Discharge: 06/17/23
-
Pending Results: No
Hospital Course
Primary care physician:
Dr. Cassie Rodgers
Outpatient hydraulic plumber helper:
Dr. Tim De La Paz
Inpatient consultants:
Corporate Quality Manager, [facility]
Procedures:
1. Radical Mitral valve repair
Primary Diagnosis:
1. 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
Secondary Diagnoses:
1.� Paroxysmal atrial fibrillation on anticoagulation
2.� Hyperlipidemia
3.� Hypertension
4.� Inflammatory bowel disease
5.� Degenerative joint disease
6.� Benign prostatic hypertrophy
7.� History of skin cancer
8.� Chronic back pain
9.� Mild left ventricular dilation /cardiomyopathy
10. Hyponatremia
HPI: 62-year-old mitral series secondary to degenerative mitral valve disease.� He also had new onset atrial fibrillation and was symptomatic in the form of shortness of breath and fatigue and requiring Lasix for edema.� He met stage D
symptomatology and class I indication for mitral valve invention.
Hospital course: On 06/13 patient was electively admitted for [facility] mitral valve repair. He returned to the CVICU extubated and on an insulin drip. He had right pleural/mediastinal chest tubes and V wires. On 06/14 postop day 1 Gill catheter
was removed he was given 40 mg of IV Lasix and infusions were weaned off. On 06/15 postop day #2 chest tubes were removed. Patient was found to be hyponatremic with a sodium level of 127. He was diuresed with 40 mg of IV Lasix and started on a
fluid restriction. Patient was having difficulty urinating and was straight cathed for 550 cc of urine and was started on Flomax. Patient continued to be hypertensive and was uptitrated on his beta-marquita dose up to 50mg twice daily. He also
converted into atrial fibrillation and was given amnio boluses, IV Lopressor, and magnesium repletion. On 06/16 postop day #3, patient was started on Eliquis and given 40 mg of IV Lasix potassium was repleted. He underwent a LINDA/cardioversion,
however, it was unsuccessful. He returned back to the CVICU and received another Amio bolus for A-fib with RVR. And his Lopressor was uptitrated to 62.5 mg. On postop day #4 patient received a two-view chest x-ray which was stable and Cordis was
removed. Patient was deemed stable for discharge and follow-up appointments were given.
Home medication changes:
Started:
Acetaminophen 650 mg every 6 hours as needed for mild pain
Amiodarone 200 mg twice a day for 30 days and then 200 mg daily until seen by hydraulic plumber helper for atrial fibrillation
Aspirin 81 mg p.o. daily for graft patency
Furosemide 40 mg p.o. daily for 7 days for fluid retention
Metoprolol tartrate 62.5 mg twice a day for blood pressure and heart rate control
Oxycodone 5 mg p.o. daily every 4-6 hours as needed for moderate to severe pain
Potassium chloride 20 MEQ daily for 7 days while on furosemide
Stopped:
Lisinopril�hydrochlorothiazide 20-25 mg p.o. daily was discontinued
Metoprolol succinate 50 mg p.o. twice a day was discontinued
Discharge Plan
-
Patient Disposition: Home (Routine Discharge)
Discharge Diagnosis/Procedures: mitral regurgitation/mitral valve repair
Condition: Good
Diet: Low Cholesterol and Low Sodium
Activity: No strenuous activity
Driving Restrictions: No driving for 1 week
Bathing Restrictions: OK to Shower
Blood Work: BMP on 06/20/23 and friday 06/23
Other Services: Cardiac Rehab
Wound Care: keep clean and dry
Specialty Instructions: Weigh Daily- Call MD for wt gain/loss 3 lbs overnight/5 lbs in 1 week
Stop these medications:: lisinopril-hydrochlorothiazide
metoprolol succinate changed to metoprolol tartrate
Activity Restrictions/Additional Instructions:
Please call [facility] at [phone] to schedule your first visit
Referrals:
CT Transitional Care Nurse [Outside] - in one to two days (The Cardiothoracic Transitional Care Nurse will call you to set up a visit in 1-2 days.)
Cassie Rodgers CRNP [Family Provider] - in four to six weeks (Please make an appointment in four to six weeks. )
Samy Lora MD [Active] - 07/10/23 1:00 pm
Lora De La Paz MD [Active] - 07/25/23 11:30 am
Prescriptions:
New
amiodarone [Pacerone] 200 mg Tablet
200 mg PO BID Qty: 60 0RF
Rx Instructions:
Twice a day for 30 days after discharge
aspirin [Children's Aspirin] 81 mg Tablet,Chewable
81 mg PO DAILY Qty: 0 0RF
furosemide 40 mg Tablet
40 mg PO DAILY Qty: 7 0RF
acetaminophen 325 mg Tablet
650 mg PO Q6H PRN (Reason: mild pain) Qty: 0 0RF
potassium chloride 20 mEq Tablet,Er Particles/Crystals
20 meq PO DAILY Qty: 7 0RF
oxycodone 5 mg Tablet
5 mg PO Q4HPRN PRN (Reason: moderate to severe pain) Qty: 10 0RF
amiodarone 200 mg tablet
200 mg PO DAILY Qty: 60 0RF
Rx Instructions:
start 30 days after discharge
metoprolol tartrate 50 mg tablet
62.5 mg PO BID Qty: 90 0RF
Continued
atorvastatin 80 mg Tablet
80 mg PO DAILY
duloxetine 30 mg Capsule,Delayed Release(Dr/Ec)
30 mg PO DAILY
Eliquis 5 mg Tablet
5 mg PO BID
Entyvio Pen
1 dose SC Q8W
Discontinued
metoprolol succinate 50 mg Tablet Extended Release 24 Hr
50 mg PO BID
lisinopril-hydrochlorothiazide 20-25 mg Tablet
1 tab PO DAILY
Discharge Orders:
Discharge Patient (As Directed); Ordered 06/17/23
Ordered By: Kimberly Pak
Care Plan Goals
Care Plan Goals:
Problem: Readiness for enhanced knowledge related to diagnosis and treatment plan
Goal: Understand your diagnosis and treatment plan needs, including medications if applicable.
Instructions: Know your diagnosis, underlying causes and treatment plan options, including medications if applicable. Consult with your health care team to learn about your diagnosis and treatment plan, including medications if applicable.
--- NOTE | 2023-06-17 10:54 | CM ---
Reviewed chart. Met with Mr. Covarrubias to review discharge plans. He stats he is feeling well and maybe able to go home soon. Prior to admission he resides with his spouse in a two story home with one stp to enter. He has a bedroom/full bathroom on
each floor. He ambulated 250 feet today and did the stairs. We reviewed a home visit by the Cardiothoracic Transitional Care Nurse. He is agreeable to a home visit. His spouse will provide transportation home. Medical work-up in progress. The
discharge plan is to return home with his spouse and a home visit by the Cardiothoracic Transitional Care Nurse when medically stable.
--- NOTE | 2023-06-17 11:00 | PTCARENOTE ---
No acute changes: vitals stable. Remains a fibb on monitor: confirmed by 12 lead ekg as ordered by cardiology. OK to dc patient home this afternoon: will stop amio gtt and cut/retract epicardial temp epicardial wires.
[2023-06-17] MEDS: NSS IV (11:09)
--- NOTE | 2023-06-17 11:30 | PTCARENOTE ---
Patient assisted back to bed. Temp epicardial v wire skin sutures dc and epicardial v wire cut and retracted by Pat ct surg PA with assist of contact representative. Right IJ cordis dc and patient is confirmed to be dc to home.
== END 2023-06-17 16:27 | disposition home or self-care (01) | DRG 220 ==
LOC: CVICU 04:53
PROVIDERS: Clinical Nurse Specialist Acute Care; Internal Medicine Cardiovascular Disease; Nurse Practitioner; Physician Assistant Medical; ADMITTING PHYSICIAN Thoracic Surgery (Cardiothoracic Vascular Surgery); CONSULT PHYSICIAN Internal Medicine Cardiovascular Disease; CONSULT PHYSICIAN Internal Medicine Critical Care Medicine; FAMILY PHYSICIAN Nurse Practitioner
PROC: 02HK0JZ Insertion of Pacemaker Lead into Right Ventricle, Open Approach (ICD-10-PCS; 2023-06-13)
PROC: 02580ZZ Destruction of Conduction Mechanism, Open Approach (ICD-10-PCS; 2023-06-13)
PROC: 02UG0JZ Supplement Mitral Valve with Synthetic Substitute, Open Approach (ICD-10-PCS; 2023-06-13)
PROC: 5A1223Z Performance of Cardiac Pacing, Continuous (ICD-10-PCS; 2023-06-13)
PROC: 5A1221Z Performance of Cardiac Output, Continuous (ICD-10-PCS; 2023-06-13)
PROC: 02L70ZK Occlusion of Left Atrial Appendage, Open Approach (ICD-10-PCS; 2023-06-13)
PROC: 02570ZK Destruction of Left Atrial Appendage, Open Approach (ICD-10-PCS; 2023-06-13)
PROC: B24BZZ4 Ultrasonography of Heart with Aorta, Transesophageal (ICD-10-PCS; 2023-06-13)
PROC: 3E033RZ Introduction of Antiarrhythmic into Peripheral Vein, Percutaneous Approach (ICD-10-PCS; 2023-06-15)
PROC: 5A2204Z Restoration of Cardiac Rhythm, Single (ICD-10-PCS; 2023-06-16)
DX: I34.0 Nonrheumatic mitral (valve) insufficiency (principal); D62 Acute posthemorrhagic anemia; I42.9 Cardiomyopathy, unspecified; J98.11 Atelectasis; E87.1 Hypo-osmolality and hyponatremia; I97.190 Other postprocedural cardiac functional disturbances following cardiac surgery; I48.0 Paroxysmal atrial fibrillation; E78.5 Hyperlipidemia, unspecified; I34.1 Nonrheumatic mitral (valve) prolapse; I10 Essential (primary) hypertension; M19.90 Unspecified osteoarthritis, unspecified site; N40.0 Benign prostatic hyperplasia without lower urinary tract symptoms; G89.29 Other chronic pain; M54.9 Dorsalgia, unspecified; R07.89 Other chest pain; D72.829 Elevated white blood cell count, unspecified; E87.5 Hyperkalemia; E86.1 Hypovolemia; E87.70 Fluid overload, unspecified; R33.8 Other retention of urine; Y83.8 Other surgical procedures as the cause of abnormal reaction of the patient, or of later complication, without mention of misadventure at the time of the procedure; K58.9 Irritable bowel syndrome, unspecified; Z88.5 Allergy status to narcotic agent; Z85.828 Personal history of other malignant neoplasm of skin; Z79.01 Long term (current) use of anticoagulants; Z87.891 Personal history of nicotine dependence; Z80.1 Family history of malignant neoplasm of trachea, bronchus and lung; Z82.0 Family history of epilepsy and other diseases of the nervous system
CPT/HCPCS: 33259; 36415; 71045; 71046; 80048; 80053; 81003; 82248; 82330; 82565; 82805; 82810; 82947; 82962; 83036; 83735; 84132; 84520; 85014; 85018; 85027; 85049; 85610; 85730; 86850; 86900; 86901; 86920; 87070; 92960; 93005; 93312; 93320; 93325; 93880; 94640; P9045